=== PATIENT | male | born 1965 | race Caucasian/White ===

== ENCOUNTER 2022-06-09 05:15 | Observation (INO) ==
--- NOTE | 2022-04-17 09:33 | PAT Medication Instructions ---
Medication Instructions Date of Service April 17, 2022 Home Medications amlodipine 5 mg tablet 5 mg PO QAM bupropion HCl 150 mg 24 hr tablet, extended release 150 mg PO QAM citalopram 20 mg tablet 20 mg PO QAM lisinopril 20 mg-hydrochlorothiazide 12.5 mg tablet 1 tab PO QAM multivitamin 1 tab PO QAM DO NOT take the morning of surgery lisinopril 20 mg-hydrochlorothiazide 12.5 mg tablet 1 tab PO QAM multivitamin 1 tab PO QAM Take morning of surgery With a small sip of water, OTHERWISE NOTHING TO EAT OR DRINK AFTER MIDNIGHT: amlodipine 5 mg tablet 5 mg PO QAM bupropion HCl 150 mg 24 hr tablet, extended release 150 mg PO QAM citalopram 20 mg tablet 20 mg PO QAM Other Notes If you have any questions please call us at [phone] or [phone] or [phone] or [phone]
--- NOTE | 2022-04-21 09:49 | Anesthesiology Consultation ---
Date of Service April 21, 2022 Assessment & Plan (1) Encounter for pre-operative examination: - COVID screening: Per assessment on 04/21/2022: Travel screen negative, no known COVID-19 positive contacts or current COVID-19 related symptoms in past 2 weeks. Surgeon arranging preop COVID testing, scheduled 05/14/2022. Awaiting results. Chart Review Chart Review: Acceptable Risk for Surgery and Patient seen in Pre Admission Testing Teaching & Discussion Pre-Anesthesia Teaching/Discussion Notes: Instructed NPO after midnight before surgery, except medications with 15 cc of water. Medication instructions provided according to the PAT guidelines. History Surgery Operation Date: 05/18/22 07:15 Proposed Procedures p Left Total Knee Arthroplasty - Elver Orourke MD Height/Weight Height: 5 ft 9 in Weight: 122.8 kg Allergies Allergy/AdvReac Type Severity Reaction Status Date / Time iodine Allergy Unknown N/V, Verified 04/16/22 14:46 SWELLING shellfish derived Allergy Unknown N/V Verified 04/16/22 14:46 SWELLING Medications Home Medications Medication Instructions Recorded Confirmed Last Taken amlodipine 5 mg tablet 5 mg PO QAM 10/14/20 04/16/22 Unknown bupropion HCl 150 mg 24 hr tablet, 150 mg PO QAM 10/14/20 04/16/22 Unknown extended release citalopram 20 mg tablet 20 mg PO QAM 10/14/20 04/16/22 Unknown lisinopril 20 1 tab PO QAM 10/14/20 04/16/22 Unknown mg-hydrochlorothiazide 12.5 mg tablet multivitamin 1 tab PO QAM 10/14/20 04/16/22 Unknown Past Medical History Medical History (Updated 04/21/22 @ 10:09 by Malaika Mazariegos PA-C) Anxiety Back pain Depression Esophageal reflux intermittent, stable per pt History of COVID-05 September 2021 -- treated with the antibody treatment--full recovery Hypertension controlled, stable per pt Psoriasis Patient denies h/o stroke, seizures, heart attack, heart failure, DM, blood clots or blood transfusions. Exercise / Class Metabolic Activity II 4-5 Yardwork/Stairs/Walk up hill (denies CP or SOB with 1 FOS) Past Family History Family History Mother Diabetes Other No family history of adverse response to anesthesia Past Surgical History Surgical History (Updated 04/21/22 @ 09:45 by Malaika Mazariegos PA-C) Biceps tendon rupture right with repair History of colonoscopy History of deviated nasal septum with repair History of esophagogastroduodenoscopy (EGD) History of tooth extraction Hx of elbow surgery right S/P left knee arthroscopy 10/24/20: LMA#5. Past Anesthesia History No Hx of Anesthesia Complications and No Family Hx of Anesthesia Complications History of PONV No Hx of PONV and No Hx of Motion Sickness Social History Smoking Status: Former smoker Do You Dip or Chew Tobacco: No Smoking End Date: 2009 Hx Alcohol Use: Yes alcohol intake frequency: holidays/special occasions only Hx Substance Use: No substance use type: does not use Review of Systems Snoring, denies witnessed apneas. Patient denies chest pain, shortness of breath, dyspnea on exertion, fever, chills, cough, wheezing, or palpitations. Physical Exam Vital Signs Vitals BP 125/82 P 82 TEMP 98.4 SP02 97% on RA RESP 17 Physical Short, thick neck Full cervical extension range of motion without pain TMD 3 finger breadths Mallampati Score 3 Dentition: intact, several missing teeth; denies chipped or loose teeth, caps/crowns, implants or bridges Lungs: normal respiratory effort. Clear throughout to auscultation, no adventitious breath sounds Cardiac: regular rate and rhythm, no murmurs noted Carotid arteries: negative bruit bilat Lab Results Anesthesia Preop Results Results Anesthesia Widget: WBC 6.53 K/uL (4.8-10.8) 04/21/22 Hgb 15.6 g/dL (14.0-18.0) 04/21/22 Hct 44.7 % (42-52) 04/21/22 Plt 223 K/uL (130-400) 04/21/22 Na 138 mmol/L (136-145) 04/21/22 K 3.7 mmol/L (3.5-5.1) 04/21/22 Cl 105 mmol/L (98-107) 04/21/22 CO2 24 mmol/L (21-32) 04/21/22 BUN 16 mg/dl (6-23) 04/21/22 Creat 1.06 mg/dl (0.6-1.4) 04/21/22 Glucose Level 116 mg/dl (70-99(Fasting)) H 04/21/22 PT 10.9 Seconds (9.0-12.0) 04/21/22 PTT 28.0 Seconds (21.0-31.0) 04/21/22 INR 1.0 (0.9-1.1) 04/21/22 Blood Type A Positive 04/21/22 Antibody Screen NEGATIVE 04/21/22 Testing Electrocardiogram Date: 04/21/22 NSR, rate 80 bpm Possible left atrial enlargement Chest X-Ray Date: 04/21/22 Cardiomediastinal and hilar silhouettes are within normal limits. There is no pneumothorax, pleural effusion, airspace consolidation or overt pulmonary edema. Bones of the chest appear grossly intact. Mild degeneration of the shoulders. IMPRESSION: No acute process.
--- NOTE | 2022-05-15 13:00 | Communication Note ---
Pt initially scheduled for left TKA on 05/18/22 Preop Covid testing 05/14/22= positive Pt rescheduled to 06/09/22 (will not need additional preop Covid testing or additional Covid contact precautions as he will be 26 days from Covid positive test ) Pt called into surgeon's office on 05/15/22, stating he is asymptomatic and had negative home Covid test today and wants re-tested. Did discuss with Infection Control- pt can have repeat NAAT tests ([place] ID Now, Cepheid or [place]) 24 hours after [place] positive test and if he has two consecutive negative tests 24 hours apart- and remains asymptomatic- he can be rescheduled sooner than 11 days. This was communicated to surgeon's office. Due to scheduling issues- pt currently scheduled for 06/09/22.
[~2022-06-09 05:15] MED LIST: ACETAMINOPHEN 500 MG TAB PO SCH; FAMOTIDINE 20 MG TAB PO SCH; GABAPENTIN 900 MG DOSE PO SCH; LR 500ML BOLUS, THEN 15ML/HR IV SCH; LR 60ML/HR IV SCH; METOCLOPRAMIDE HCL 10 MG TABLET PO SCH; ROPIVACAINE 0.5% HCL/PF 150 MG, BUPIVACAINE 0.75% MPF 20 ML, EPINEPHrine 0.15 MG, Ketor... INFIL SCH; TRANEXAMIC ACID 1,000 MG **IV Intra-op IV SCH; TRANEXAMIC ACID 1,000 MG **IV Pre-op IV SCH; cloNIDine HCL 0.1 MG/24 HR TRANSDERM SYS TD SCH; dexAMETHasone 4 MG TAB PO SCH; oxyCODONE HCL 10 MG TABCR (OxyCONTIN) PO SCH; traMADol HCL 50 MG TABLET PO SCH
[2022-06-09] MEDS ORDERED: LR 500ML BOLUS, THEN 15ML/HR IV SCH (06:00)
[2022-06-09] MEDS ORDERED: ROPIVACAINE 0.5% HCL/PF 150 MG, BUPIVACAINE 0.75% MPF 20 ML, EPINEPHrine 0.15 MG, Ketor... INFIL SCH (06:00)
[2022-06-09] MEDS ORDERED: ACETAMINOPHEN 500 MG TAB PO SCH (06:00)
[2022-06-09] MEDS ORDERED: cloNIDine HCL 0.1 MG/24 HR TRANSDERM SYS TD SCH (06:00)
[2022-06-09] MEDS ORDERED: FAMOTIDINE 20 MG TAB PO SCH (06:00)
[2022-06-09] MEDS ORDERED: GABAPENTIN 900 MG DOSE PO SCH (06:00)
[2022-06-09] MEDS ORDERED: traMADol HCL 50 MG TABLET PO SCH (06:00)
[2022-06-09] MEDS ORDERED: oxyCODONE HCL 10 MG TABCR (OxyCONTIN) PO SCH (06:00)
[2022-06-09] MEDS ORDERED: TRANEXAMIC ACID 1,000 MG **IV Intra-op IV SCH (06:00)
[2022-06-09] MEDS ORDERED: METOCLOPRAMIDE HCL 10 MG TABLET PO SCH (06:00)
[2022-06-09] MEDS ORDERED: dexAMETHasone 4 MG TAB PO SCH (06:00)
[2022-06-09] MEDS ORDERED: TRANEXAMIC ACID 1,000 MG **IV Pre-op IV SCH (06:00)
[2022-06-09] MEDS ORDERED: LR 60ML/HR IV SCH (06:00)
[2022-06-09] MEDS ORDERED: LIDOCAINE 2% MPF LOCAL 5 ML VIAL INFIL ONE (06:30)
[2022-06-09] MEDS ORDERED: ONDANSETRON INJ 2 MG/ML 2 ML VIAL ONE (06:30)
[2022-06-09] MEDS ORDERED: fentaNYL citrate 100 MCG/2 ML VIAL ONE ×2 (06:30→09:03)
[2022-06-09] MEDS ORDERED: PROPOFOL IV EMULSION 10 MG/ML 20 ML VIAL IV ONE ×3 (06:30→08:14)
[2022-06-09] MEDS ORDERED: MIDAZOLAM HCL 1 MG/ML 2ML VIAL ONE ×2 (06:30→08:28)
[2022-06-09] MEDS ORDERED: MEPIVACAINE HCL 1.5% 30 ML VIAL ONE (06:33)
[2022-06-09] MEDS ORDERED: EPINEPHrine INJ 1 MG/ML AMP ONE (06:33)
[2022-06-09] MEDS ORDERED: ROPIVACAINE 0.5% 5 MG/ML 30 ML VIAL ONE (06:33)
[2022-06-09] MEDS ORDERED: VANCOMYCIN HCL 1000MG/20ML VIAL ONE (06:34)
[2022-06-09] MEDS ORDERED: ORTHO JOINT ANESTHETIC ONE (06:34)
--- NOTE | 2022-06-09 06:41 | History & Physical Bridge Note ---
Date of Service June 09, 2022 History & Physical Bridge Note I have examined the patient, reviewed the History & Physical and in the interval since the performance of the History & Physical I have noted the following changes of clinical significance: no changes noted
[2022-06-09] MEDS ORDERED: LABETALOL HCL IV 5 MG/ML 20ML IV ONE ×4 (08:26→09:21)
[2022-06-09] MEDS ORDERED: KETAMINE 50 MG/5 ML SYRINGE ONE (08:29)
[2022-06-09] MEDS ORDERED: PROMETHAZINE HCL 12.5 MG in SODIUM CHLORIDE 0.9% 50 ML IV PRN (08:37)
[2022-06-09] MEDS ORDERED: NALOXONE HCL 0.4 MG/1 ML VIAL/CARP IV PRN ×2 (08:37→16:07)
[2022-06-09] MEDS ORDERED: FLUMAZENIL 0.1 MG/1 ML 10 ML VIAL IV PRN (08:37)
[2022-06-09] MEDS ORDERED: ePHEDrine sulfate 50 MG/ML AMP IV PRN (08:37)
[2022-06-09] MEDS ORDERED: ATROPINE SULFATE 0.1 MG/ML 10ML SYR IV PRN (08:37)
[2022-06-09] MEDS ORDERED: ONDANSETRON INJ 2 MG/ML 2 ML VIAL IV PRN ×2 (08:37→16:07)
--- NOTE | 2022-06-09 10:21 | Operative Report ---
Post Operative Report Pre & Post Diagnosis Operation Date: 06/09/22 07:00 Pre-Op Diagnosis: Left Knee Osteoarthritis Post-Op Diagnosis: Left Knee Osteoarthritis I identified the patient and participated in the time-out.: Yes Procedure Preop diagnosis is left knee osteoarthritis postop diagnosis same. Operation Date: 06/09/22 07:00 Actual Procedures p Left Total Knee Arthroplasty(Left) - Elver Orourke MD Surgeon Elver Orourke MD White [employer] Filterer Ирина Mayer no resident or fellow available Estimated Blood Loss 10 Findings Consistent with Post-Op Diagnosis Specimens Resected bone and soft tissue Anesthesia Type General Regional Complications none Disposition Accompanied Patient To Recovery: No Disposition: Recovery Room Indications rFank is 57 and has significant left knee pain and osteoarthritis. He has undergone extensive conservative management which has not relieved his pain. He has elected to proceed with a knee replacement. Description of Procedure Informed consent obtained. Patient identified. He identified the operative site as the left knee. I marked with my initials. Preoperative surgical timeout was performed. A prep dose of IV antibiotics was given. He was taken to the operating room positioned supine on the operating room table. A bump was placed under the left hip and left calf. A tourniquet was applied to the left thigh. The leg was prescribed prepped and draped in usual sterile fashion. DVT prophylaxis intraoperatively with foot pumps and postoperatively with early mobility and Lovenox. The exam under anesthesia revealed trace varus alignment range of motion of 0 to about 115 to 120 degrees there was no laxity. Positive moderate effusion. Limb exsanguinated with the Esmarch. Tourniquet inflated 275 mmHg. Midline longitudinal incision was made followed by medial parapatellar arthrotomy. Soft tissue on the anterior aspect the distal femur was resected along with the retropatellar fat pad the synovial reflection in the lateral gutter was released. An extensile medial release was performed and the small remnant of the medial meniscus was excised. There were a large osteophytes noted on the medial tibia which were debrided. Osteophytes elsewhere were also debrided. There were grade 4 changes over the entire weightbearing area of the femoral condyle and grade 4 blade changer an area 1-1/2 to centimeters in diameter medial tibia with surrounding areas of grade 3. The cruciate ligaments were intact and resected. The lateral meniscus was intact and resected. I was hoping to preserve the patella however there was extensive softness fissuring and flaps of the patella along with to osteophytes 1 of which was substantially large. This was resected. The tibia was subluxated and a pilot captain hole was drilled into the proximal tibia. The intramedullary alignment jovani was then utilized to line up the tibial cutting block. A 0 degree block. This was set to cut 10 off the high side galina esponding to about 4 off the medial side. The extra medullary alignment jovani was utilized to confirm slope and alignment which was appropriate with a little valgus twist of the block and an extra pin. This cut was made and sized to a 3 or 4. A pilot captain hole was drilled into the distal femur followed by the insertion of a distal femoral cutting block set to 5 degrees left knee valgus 12 mm thick. T his cut was then made and the extension gap was okay in the front but tight posteriorly. I went ahead and did some additional releasing but it remained the same. I then went ahead and took the 3 degrees posterior slope cutting block and applied that to the tibia and recut the tibia with some slope and this nicely corrected the tightness in the back the knee and the tendon block fit symmetrically. The knee was neutrally aligned and fully extended. I then took the femoral sizer and applied it. It was never a 4. It was just above the 3. I set the guide at 3 and drilled the appropriate pins which matched the epicondylar axis. The size 3 anterior down cutting block was applied and those cuts were made protecting the collateral ligaments. Osteophytes under the collateral ligaments were removed. The box cutting guide was applied and lateralized and that cut was made. Osteophytes in the back the knee were resected. The flexion gap was a symmetric 10. The tibia was prepared with the keel and punch. Trialing was performed. The knee had full extension flexion to about 120 and it had trace MCL and LCL laxity in mid position otherwise it was symmetrically tight. Attention was turned to the patella which measured only 21 mm in thickness. I went ahead and selected a 38 mm 3 peg patella. This required resection of 9 mm. I set the guide to preserve 14 mm of bone. After the cut was made the residual patellar thickness was 13. The paddle was aligned and the lug holes were drilled and patellar tracking was fine with no hands technique. The trial components were removed. Ortho joint mix injected in the back the knee. There was eburnation of the lateral patella which was drilled with a pin. Bony surfaces were meticulously irrigated and dried. 2 bags of Simplex P anurag ent were mixed and then while in a doughy state smears were placed on the back of the condyles and the components were cemented in place. Femur tibia patella. The knee was held in full extension with a trial spacer until the cement had hardened. Tourniquet was then let down after 100 110 minutes of inflation. Meticulous hemostasis with minimal bleeding. Soft tissues were kept moist throughout the surgical procedure. Irrigation was reperformed. Trialing with a 10 revealed the after mentioned laxity profile and the final 10 mm thick polyethylene insert was applied. There was no bleeding in the back the knee and we did check for cement and removed as encountered. Irrigation was performed and the remainder the Ortho joint mix was injected into the knee while the cement was hardening. The extensor mechanism was closed with interrupted #2 FiberWire above the equator the patella and running and interrupted #1 Vicryl below. The skin was closed in layers with 0 and 2-0 Vicryl and mike. The leg was cleaned with wet and dry sponges and a bulky soft sterile dressing was applied Xeroform 4 x 4's ABD soft wrap and a full-length Corey with a knee immobilizer. Patient was awakened from anesthesia without difficulty and taken to the recovery room in stable condition. There were no complications. The resected bone and soft tissue were sent for specimen. The bone appeared normal. Counts were correct. Blood loss 10 cc. At the conclusion of the operation spoke patient's informed of my findings postop instructions were given. Due to bed availability and with the patient's consent he was enrolled in the outpatient joint program if he meets postoperative criteria. Lovenox will be started 12 hours postop. [place] assisted flexion with the extensor mechanism closed was 115 to 120 degrees. The composite patellar thickness after reconstruction was 22-1/2 mm. Components inserted with a J[employer]J PFC Sigma rotating platform knee. Posterior stabilized size 3 left femur and a 4 RP tray with a 38 3 peg oval dome patella and a size 3 x 10 mm thick rotating platform PS insert I attest to the content of the Intraoperative Record and any orders documented therein. Any exceptions are noted below.
--- NOTE | 2022-06-09 10:25 | Operative Report ---
Post Operative Report Pre & Post Diagnosis Operation Date: 06/09/22 07:00 Pre-Op Diagnosis: Left Knee Osteoarthritis Post-Op Diagnosis: Left Knee Osteoarthritis I identified the patient and participated in the time-out.: Yes Procedure Operation Date: 06/09/22 07:00 Actual Procedures p Left Total Knee Arthroplasty(Left) - Elver Orourke MD Surgeon Elver Orourke M.D. Automobile Racer Ирина Mayer PA-C Estimated Blood Loss 10 Findings Consistent with Post-Op Diagnosis Specimens bone and soft tissue Anesthesia Type General Regional Description of Procedure Patient was taken to the operating room, placed under IV sedation with peripheral nerve block, during the middle of the case he was then placed under general anesthesia. He was given 3 gm IV Ancef for surgical prophylaxis. Time out performed, prepped and draped in routine sterile fashion. I was present during the entire procedure, please see Dr. Orourke's operative report for further details. Patient was awakened and taken to recovery room in stable condition. I attest to the content of the Intraoperative Record and any orders documented therein. Any exceptions are noted below.
[2022-06-09] MEDS ORDERED: oxyCODONE/ACETAMINOPHEN 5mg/325mg TAB PO PRN (10:29)
[2022-06-09] MEDS: fentaNYL citrate 100 MCG/2 ML VIAL IV PRN ×4 (10:30→10:45)
[2022-06-09] MEDS: HYDROmorphone INJ 1 MG/ML SYRINGE IV PRN ×8 (10:52→12:23)
--- NOTE | 2022-06-09 10:56 | XRay Report ---
LEFT KNEE 2 VIEWS History: Left total knee arthroplasty. Degenerative arthritis. Postop. FINDINGS: The patient is status post a left total knee arthroplasty. The hardware is intact. No fract ure or dislocation. Skin mike are in place. IMPRESSION: Left total knee arthroplasty. No evidence for hardware complication. ACT 112: Negative or not required by law. Electronically signed by: Roverto Dominguez M.D. 06/09/2022 10:54 AM
--- NOTE | 2022-06-09 12:07 | Anesthesiology Progress Note ---
Date of Service June 09, 2022 Anesthesia Post Procedure Vital Signs Vital Signs: Temp Pulse Resp BP Pulse Ox O2 Del Method O2 Flow Rate 06/09/22 12:05 82 18 132/88 96 Nasal Cannula 2 06/09/22 11:55 78 18 141/97 H 95 Nasal Cannula 2 06/09/22 11:45 77 18 112/73 95 Nasal Cannula 2 06/09/22 11:35 77 18 115/83 95 Nasal Cannula 2 06/09/22 11:25 36.5 C 78 16 106/66 97 Nasal Cannula 2 06/09/22 11:15 36.5 C 85 16 101/67 95 Nasal Cannula 2 06/09/22 11:05 82 16 106/70 95 Nasal Cannula 4 06/09/22 10:55 85 16 126/81 95 Nasal Cannula 4 06/09/22 10:45 84 16 131/81 96 Nasal Cannula 4 06/09/22 10:35 82 18 129/97 96 Nasal Cannula 4 06/09/22 10:26 36.5 C 84 18 115/87 96 Oxymask 5 06/09/22 06:05 36.7 C 79 20 146/87 H 94 Room Air Transfer of Care Handoff Completed per policy Notes Mental Status: alert / awake / arousable Patient Amnestic to Procedure: Yes Nausea / Vomiting: adequately controlled Pain: adequately controlled Airway Patency, RR, SpO2: stable & adequate BP & HR: stable & adequate Hydration State: stable & adequate Anesthetic Complications: no major complications apparent
[2022-06-09] MEDS ORDERED: bisacodyL 10 MG SUPP PR PRN (16:07)
[2022-06-09] MEDS ORDERED: HYDROmorphone INJ 0.5 MG/0.5 ML SYR IV PRN ×2 (16:07→17:23)
[2022-06-09] MEDS ORDERED: TAMSULOSIN HCL 0.4 MG CAP PO PRN (16:07)
[2022-06-09] MEDS ORDERED: diphenhydrAMINE 50 MG/ML VIAL IV PRN (16:07)
[2022-06-09] MEDS ORDERED: MAGNESIUM HYDROXIDE SUSP 30 ML UDC PO PRN (16:07)
[2022-06-09] MEDS ORDERED: traMADol HCL 50 MG TABLET PO PRN (16:07)
[2022-06-09] MEDS ORDERED: HYDROmorphone INJ 1 MG/ML SYRINGE IV PRN ×2 (16:07→17:23)
[2022-06-09] MEDS: CHECK CLONIDINE PATCH PLACEMENT SCH ×10 (16:32→23:33)
[2022-06-09] MEDS: ACETAMINOPHEN 500 MG TAB PO SCH ×2 (16:43→22:06)
[2022-06-09] MEDS: SODIUM CHLORIDE 0.9% 1000ML 1,000 ML IV SCH (16:49)
[2022-06-09] MEDS: KETOROLAC 30 MG/ML VIAL IV SCH ×2 (17:39→22:06)
[2022-06-09] MEDS: ceFAZolin 2000MG 2,000 MG/15 ML SYR IV SCH ×2 (17:39→23:33)
[2022-06-09] MEDS: oxyCODONE HCL IR 5 MG TAB (IMMEDIATE RELEASE) PO PRN (19:58)
[2022-06-09] MEDS: SENNA 8.6 MG TAB PO SCH (20:48)
[2022-06-09] MEDS: DOCUSATE SODIUM 100 MG CAP PO SCH (20:48)
[2022-06-09] MEDS: ENOXAPARIN INJ 30 MG/0.3 ML SYR SQ SCH (22:06)
[2022-06-10] MEDS: oxyCODONE HCL IR 5 MG TAB (IMMEDIATE RELEASE) PO PRN ×6 (00:02→23:14)
[2022-06-10] MEDS: SODIUM CHLORIDE 0.9% 1000ML 1,000 ML IV SCH (02:09)
[2022-06-10] MEDS: KETOROLAC 30 MG/ML VIAL IV SCH ×2 (04:17→10:41)
[2022-06-10] MEDS: ACETAMINOPHEN 500 MG TAB PO SCH ×3 (05:20→21:31)
[2022-06-10 06:52] LABS: Hematocrit (blood only) 34.8 % (40.1-51.0); Hemoglobin 11.8 g/dl (14.0-18.0); Mean Corpuscular Hgb Conc 33.9 g/dL (32.0-36.0); Mean Corpuscular Volume 94.3 fL (80.0-100.0); Mean Platelet Volume 9.5 fL (9.4-12.4); Platelet Count 190 K/uL (130-400); RDW Coefficient of Variation 12.2 % (11.5-14.5); RDW Standard Deviation 42.4 fL (36.4-46.3); Red Blood Count 3.69 M/uL (4.63-6.08); White Blood Count 13.22 K/ul (4.8-10.8)
[2022-06-10 07:24] LABS: BUN Creatinine Ratio 13.3 (10-20); Calcium 8.4 mg/dl (8.5-10.1); Creatinine Clr Calc Pharmacy 95.7 ml/min; Est GFR (African American) 84.3 ml/min; Est GFR (Non-African American) 72.8 ml/min
[2022-06-10] MEDS ORDERED: dexAMETHasone 4 MG TAB PO SCH (08:00)
[2022-06-10] MEDS: amLODIPine BESYLATE 5 MG TAB PO SCH (08:03)
[2022-06-10] MEDS: DOCUSATE SODIUM 100 MG CAP PO SCH ×2 (08:03→20:20)
[2022-06-10] MEDS: LISINOPRIL/HCTZ 20/12.5MG 1 TAB TAB PO SCH (08:03)
[2022-06-10] MEDS: CITALOPRAM 20 MG TAB PO SCH (08:03)
[2022-06-10] MEDS: buPROPion XL 150 MG TABCR PO SCH (08:03)
[2022-06-10] MEDS: MULTIVITAMIN TAB PO SCH (08:03)
[2022-06-10] MEDS: CHECK CLONIDINE PATCH PLACEMENT SCH ×6 (08:04→17:39)
[2022-06-10] MEDS ORDERED: NON-FORMULARY MEDICATION (Multivitamin Tablet) PO SCH (09:00)
[2022-06-10] MEDS: ENOXAPARIN INJ 30 MG/0.3 ML SYR SQ SCH ×2 (09:39→21:30)
--- NOTE | 2022-06-10 10:52 | Orthopedic Progress Note ---
Date of Service June 10, 2022 Assessment & Plan (1) Status post total left knee replacement: Plan: POD 1 PT/OT today OOB weight bear as tolerated LLE with assistance of a knee immobilizer and walker. Regular diet as ordered Pain medication as prescribed. Ice and elevation to left knee/left leg as needed for pain/swelling. Case management for disposition. Lovenox and AV impulse boots, TEDs for DVT prophylaxis. Plans for discharge to home with home health. Will reassess this afternoon to see how he did in PT and if pain controlled enough for discharge. Patient understands and agrees with the plan. HH arranged preoperatively. Dr. Orourke present for today's visit. Admission and Anticipated Discharge Date Admission Date: June 09, 2022 Subjective Patient having pain this morning, controlled/tolerable with Oxycodone. States that the Tramadol alone was not enough. Denies numbness or tingling in left leg, denies chest pain or shortness of breath. Has been out of bed last evening and this morning with OT. Awaiting PT today. Physical Exam Musculoskeletal: Left knee dressings clean, dry and intact. Full ankle ROM and strength. Mild distal edema, sensation normal to sensation, no calf tenderness, calf is supple. Tolerated gentle ROM of left knee and left hip. Results & Data ([facility]) Vital Signs (Past 12 Hours) Vital Signs Temp Pulse Resp BP Pulse Ox O2 Del Method 06/10/22 07:20 36.6 C 76 17 142/69 H 99 Room Air 06/10/22 02:57 36.5 C 84 16 141/76 H 95 Room Air 06/09/22 23:15 36.8 C 89 18 108/64 95 Room Air Laboratory Results 06/10/22 06/10/22 Range/Units 06:02 06:02 WBC 13.22 H (4.8-10.8) K/ul RBC 3.69 L (4.63-6.08) M/uL Hgb 11.8 L (14.0-18.0) g/dl Hct 34.8 L (40.1-51.0) % MCV 94.3 (80.0-100.0) fL MCH 32.0 (25.0-34.0) pg MCHC 33.9 (32.0-36.0) g/dL RDW Std Deviation 42.4 (36.4-46.3) fL RDW Coeff of Michelle 12.2 (11.5-14.5) % Plt Count 190 (130-400) K/uL MPV 9.5 (9.4-12.4) fL Sodium 135 L (136-145) mmol/L Potassium 4.0 (3.5-5.1) mmol/L Chloride 104 (98-107) mmol/L Carbon Dioxide 25 (21-32) mmol/L Anion Gap 6 (3-11) BUN 15 (6-23) mg/dl Creatinine 1.13 (0.6-1.4) mg/dl Est Cr Clr Drug Dosing 95.7 ml/min Est GFR ( Amer) 84.3 ml/min Est GFR (Non-Af Amer) 72.8 ml/min BUN/Creatinine Ratio 13.3 (10-20) Glucose 124 H (70-99(Fasting)) mg/dl Calcium 8.4 L (8.5-10.1) mg/dl
[2022-06-10] MEDS: SENNA 8.6 MG TAB PO SCH (20:21)
[2022-06-11] MEDS: oxyCODONE HCL IR 5 MG TAB (IMMEDIATE RELEASE) PO PRN ×4 (03:26→15:20)
[2022-06-11] MEDS: ACETAMINOPHEN 500 MG TAB PO SCH ×2 (06:07→15:22)
[2022-06-11 07:27] VITALS: BP 141/94; PULSE 75; TEMP 97.7; O2SAT 98
[2022-06-11] MEDS: LISINOPRIL/HCTZ 20/12.5MG 1 TAB TAB PO SCH (08:46)
[2022-06-11] MEDS: amLODIPine BESYLATE 5 MG TAB PO SCH (08:46)
[2022-06-11] MEDS: CITALOPRAM 20 MG TAB PO SCH (08:46)
[2022-06-11] MEDS: DOCUSATE SODIUM 100 MG CAP PO SCH (08:46)
[2022-06-11] MEDS: buPROPion XL 150 MG TABCR PO SCH (08:46)
[2022-06-11] MEDS: MULTIVITAMIN TAB PO SCH (08:46)
--- NOTE | 2022-06-11 09:24 | Orthopedic Progress Note ---
Date of Service June 11, 2022 Assessment & Plan (1) Status post total left knee replacement: Plan: Patient was educated regarding today's findings. He feels ready for discharge to home. Patient will have his dressing change later today. I will speak with Dr. Orourke regarding his possible discharge today. Patient's postoperative prescriptions have already been sent to his pharmacy. Admission and Anticipated Discharge Date Admission Date: June 09, 2022 Subjective Patient is seen in his room this morning. States he did well overnight. Denies any chest pain, shortness of breath, nausea, or vomiting. He does have left- sided thigh pain that he believes is from the tourniquet. He states that hurts more than his knee. No numbness or tingling. He has been out of bed and has ambulated to the bathroom. He feels much better today and thinks he is ready for discharge. Review of Systems Review of Systems: Unchanged from yesterday. Physical Exam Physical Exam: General: Well-developed, well-nourished, middle-aged male, in no acute distress. Sitting in bed. Conversive. Coherent. Skin: Warm dry with good turgor. No rashes. He has some ecchymosis on his thigh. Postsurgical dressings are in place. There is no strikethrough. Musculoskeletal: Patient has intact motor function of his left leg. He is able to flex his knee to around 35 degrees. He has full extension. Intact motor function of the ankle. He is able to set his quad and perform a straight leg raise with some minor assistance. Neurologic: Gross sensation is intact across the left leg by soft touch. Results & Data ([facility]) Vital Signs (Past 12 Hours) Vital Signs Temp Pulse Resp BP Pulse Ox O2 Del Method 06/11/22 07:57 36.5 C 75 16 141/94 H 98 06/11/22 07:23 36.5 C 75 16 141/94 H 98 06/10/22 22:14 36.6 C 100 H 18 134/77 97 Room Air
--- NOTE | 2022-06-11 11:03 | Discharge Summary ---
Date of Service June 11, 2022 Discharge Data Procedures Performed Operation Date: 06/09/22 07:00 Actual Procedures p Left Total Knee Arthroplasty(Left) - Elver Orourke MD Hospital Course (1) Status post total left knee replacement: Patient was admitted to [facility] for observation after undergoing an elective left total knee arthroplasty on June 09, [address] Orourke. His surgery was performed with IV sedation and spinal anesthetic with peripheral nerve block, he was then given general anesthesia due to some desaturation during the case. He also then had prolonged elevated CO2 levels after extubation. He was initially planning on being an outpatient total joint but then was admitted postoperatively for monitoring of his saturation of oxygen levels. He was given 3 g of IV Ancef for surgical prophylaxis preoperatively and this was continued for 24 hours after surgery. In the PACU he had postoperative x-rays of his left knee which showed a stable prosthesis of his left knee. He was allowed out of bed, weight-bear as tolerated left lower extremity with the assistance of a walker and knee immobilizer when out of bed. He was given oxycodone, tramadol, Tylenol, Toradol, IV Dilaudid as needed for pain medication. He was given a bowel regimen during his inpatient stay as well. He was given Flomax as needed for urinary retention. He was placed on oxygen and continuous pulse ox for the first 24 hours. His home medications were continued. He was placed on Lovenox 30 mg p.o. twice daily which started the day after his surgery for DVT prophylaxis. He was also given BRANDON stockings and AV impulse boots during his inpatient stay. His vital signs were stable during his inpatient stay. Postoperative laboratory work revealed some mild blood loss anemia but stable. No transfusions were necessary during his inpatient stay. He was given a regular diet which he tolerated well during his inpatient stay. He did have a lot of postoperative pain which was managed mildly with oral pain medication. He was kept for 2 postoperative days for pain control. He was seen and evaluated by physical therapy and Occupational Therapy daily and did well out of bed. He was deemed safe for discharge to his home. On postoperative day 2 his dressings were changed. The incision was clean, dry and intact. New dressings were applied. Case management was involved for discharge needs. He did have home health arranged preoperatively and this was confirmed during his hospital stay. He was deemed safe for discharge to his home on June 11, 2022. He was discharged to his home in stable condition with his . Home health arrangements were made prior to leaving. He did have a walker for use at home. Discharge instructions were reviewed and as below. Pain medication was also sent to his pharmacy. His Lovenox was sent to his pharmacy upon discharge as well.
[2022-06-11] MEDS: ENOXAPARIN INJ 30 MG/0.3 ML SYR SQ SCH (11:27)
== END 2022-06-11 16:19 | disposition home health service (06) ==
LOC: ASU 05:15 → PACUINP 05:15 → 3E 15:55
DX: Z87.891 Personal history of nicotine dependence; Z79.899 Other long term (current) drug therapy; E66.01 Morbid (severe) obesity due to excess calories; M17.12 Unilateral primary osteoarthritis, left knee; Z68.41 Body mass index [BMI] 40.0-44.9, adult; Z91.013 Allergy to seafood

== ENCOUNTER 2022-06-25 03:44 | Inpatient (IN) ==
[2022-06-25] MEDS ORDERED: CEFEPIME 2,000 MG/20 ML VIAL IV STA (04:04)
[2022-06-25] MEDS ORDERED: PIPERACILLIN/TAZOBACTAM 4.5 GM in DEXTROSE 5% 100 ML IV SCH ×2 (04:15→11:00)
[2022-06-25 04:36] LABS: Basophils # (auto) 0.08 K/uL (0-0.2); Basophils % (auto) 0.6 %; Eosinophils # (auto) 0.24 K/uL (0-0.50); Eosinophils % (auto) 1.7 %; Hematocrit (blood only) 37.6 % (40.1-51.0); Hemoglobin 12.6 g/dl (14.0-18.0); Immature Granulocytes % (auto) 0.7 %; Lymphocytes # (auto) 1.71 K/uL (1.2-3.4); Mean Corpuscular Hemoglobin 31.5 pg (25.0-34.0); Mean Corpuscular Hgb Conc 33.5 g/dL (32.0-36.0); Mean Platelet Volume 8.5 fL (9.4-12.4); Monocytes # (auto) 1.23 K/uL (0.24-0.82); Monocytes % (auto) 8.6 %; Neutrophils # (auto) 10.93 K/uL (1.4-6.5); Neutrophils % (auto) 76.4 %; Platelet Count 299 K/uL (130-400); RDW Coefficient of Variation 12.8 % (11.5-14.5); RDW Standard Deviation 43.8 fL (36.4-46.3); White Blood Count 14.29 K/ul (4.8-10.8)
[2022-06-25] MEDS ORDERED: PIPERACILLIN/TAZOBACTAM 4.5 GM/120 ML BAG IV STA (04:59)
[2022-06-25 05:05] LABS: Partial Thromboplastin Time 28.8 Seconds (21.0-31.0); Prothrombin Time 10.8 Seconds (9.0-12.0)
[2022-06-25] MEDS ORDERED: ONDANSETRON INJ 2 MG/ML 2 ML VIAL IV STA (05:05)
[2022-06-25] MEDS ORDERED: SODIUM CHLORIDE 0.9% 1000ML 2,000 ML IV ONE (05:05)
[2022-06-25] MEDS ORDERED: MoRPHine SULFATE 10 MG/ML CARP/VIAL IV STA (05:05)
[2022-06-25] MEDS ORDERED: ACETAMINOPHEN 1,000 MG/100 ML VIAL IV STA (05:05)
[2022-06-25 05:10] LABS: Albumin Globulin Ratio 1.3 (0.9-2); Albumin Level 3.8 gm/dl (3.4-5.0); BUN Creatinine Ratio 11.4 (10-20); Bilirubin,Total 0.5 mg/dl (0.2-1.0); Calcium 8.9 mg/dl (8.5-10.1); Creatinine Clr Calc Pharmacy 93.5 ml/min; Est GFR (African American) 83.4 ml/min; Magnesium 1.8 mg/dl (1.7-2.4); Potassium 3.9 mmol/L (3.5-5.1); Total Protein 6.8 gm/dl (6.0-8.3)
[2022-06-25 06:53] LABS: Appearance Urine Clear (Clear); Bilirubin Urine Negative (Negative); Blood Urine Negative (Negative); Color Urine Yellow; Glucose Urine UA Negative (Negative); Ketones Urine Negative (Negative); Leukocyte Esterase Urine Negative (Negative); Nitrite Urine Negative (Negative); Protein Urine Negative (Negative); Specific Gravity Urine 1.012 (1.000-1.030); Urobilinogen Urine Negative (Negative); pH Urine 7.5 (4.5-7.5)
--- NOTE | 2022-06-25 07:05 | Emergency Department Note ---
History of Present Illness General Chief complaint: Knee Injury/Pain Stated complaint: KNEE REPLACED,KNEE PAIN,FEVER Time Seen by Provider: 06/25/22 03:56 History of Present Illness Maximum Pain Intensity: 3 This 57-year-old male patient 2 weeks status post left total knee arthroplasty completed by Dr. Orourke presents to the emergency department today for evaluation of left knee infection. Patient states since his surgery, he has had low-grade temperatures of about 99 F. He had his mike out earlier this week and evaluation looked good at that time. The patient states he had PT yesterday and had some increased soreness in the area of the incision site. He assumed the soreness was due to his PT. He went to bed and awoke suddenly at about 2 AM with chills, diaphoresis, increased pain in the left knee and incision site, noted a temperature of about 101 to 102 F. He decided to come to the emergency department for further evaluation. He has not been taking any medications for his symptoms. He rates his pain 8/10 and describes it as sharp and throbbing. Home Medications Medication Instructions Recorded Confirmed Type amlodipine 5 mg tablet 5 mg PO QAM 10/14/20 04/16/22 History bupropion HCl 150 mg 24 hr tablet, 150 mg PO QAM 10/14/20 04/16/22 History extended release citalopram 20 mg tablet 20 mg PO QAM 10/14/20 04/16/22 History lisinopril 20 1 tab PO QAM 10/14/20 04/16/22 History mg-hydrochlorothiazide 12.5 mg tablet multivitamin 1 tab PO QAM 10/14/20 04/16/22 History acetaminophen 500 mg tablet 1,000 mg PO Q8H 30 days #180 tabs 06/09/22 Rx (Tylenol Extra Strength) docusate sodium 100 mg capsule 100 mg PO BID #14 caps 06/09/22 Rx (Colace) enoxaparin 30 mg/0.3 mL 30 mg (0.3 mL) subcut BID 14 days 06/09/22 Rx subcutaneous syringe (Lovenox) #28 SYRINGES oxycodone 5 mg tablet 5 - 10 mg PO Q4H PRN pain #20 tabs 06/09/22 Rx tramadol 50 mg tablet 50 - 100 mg PO Q4H PRN pain #20 06/09/22 Rx tabs Allergies Allergy/AdvReac Type Severity Reaction Status Date / Time iodine Allergy Unknown N/V, Verified 06/25/22 08:51 SWELLING shellfish derived Allergy Unknown N/V Verified 06/25/22 08:51 SWELLING Past Med/Surg History Medical History Anxiety Back pain Depression Esophageal reflux intermittent, stable per pt History of COVID-05 September 2021 -- treated with the antibody treatment--full recovery Hypertension controlled, stable per pt Psoriasis Surgical History (Updated 06/25/22 @ 08:47 by Mihaela aDley PA-C) Biceps tendon rupture right with repair History of colonoscopy History of deviated nasal septum with repair History of esophagogastroduodenoscopy (EGD) History of tooth extraction Hx of elbow surgery right S/P left knee arthroscopy 10/24/20: LMA#5. Family History Mother Diabetes Other No family history of adverse response to anesthesia Social History Smoking Status: Current every day smoker Tobacco Type: Smokeless Tobacco (Dip or Chew) Second Hand Exposure: No; Hx Alcohol Use: Yes Hx Substance Use: No Preferred Language: Spanish Communication Ability: Effective Director Of Enrollment Required: No Beliefs That Will Affect Care: None marital status: Current Living Situation: Spouse Feels Safe at Home: Yes Assistive Devices: Walker Review of Systems A total of 10 systems reviewed and were otherwise negative Physical Exam Vital Signs Vital Signs - 24 hr 06/25/22 03:52 06/25/22 04:04 06/25/22 04:30 Temperature 37.2 C Temperature Source Temporal Artery Scan Pulse Rate 16 L 104 H Pulse Rate from SpO2 Sensor Pulse Rhythm Respiratory Rate 22 18 Respiratory Effort / Characteristics Non-Labored Blood Pressure 140/88 161/88 H Blood Pressure Mean 105 112 Pulse Oximetry 96 98 Oxygen Delivery Method Room Air Room Air Sepsis Recent Fever Within 48 Hours Yes Sepsis New/Unexplained Change in Mental Status No Sepsis Action Taken by Nursing No Action Required 06/25/22 04:34 06/25/22 05:04 06/25/22 05:04 Temperature 37.6 C H Temperature Source Oral Pulse Rate Pulse Rate from SpO2 Sensor Pulse Rhythm Respiratory Rate Respiratory Effort / Characteristics Non-Labored Non-Labored Blood Pressure Blood Pressure Mean Pulse Oximetry Oxygen Delivery Method Sepsis Recent Fever Within 48 Hours Sepsis New/Unexplained Change in Mental Status Sepsis Action Taken by Nursing 06/25/22 05:00 06/25/22 05:14 06/25/22 05:30 Temperature Temperature Source Pulse Rate 104 H 104 H Pulse Rate from SpO2 Sensor Pulse Rhythm Respiratory Rate 15 19 Respiratory Effort / Characteristics Non-Labored Blood Pressure 148/89 H 142/92 H Blood Pressure Mean 108 108 Pulse Oximetry 97 96 Oxygen Delivery Method Room Air Room Air Sepsis Recent Fever Within 48 Hours Sepsis New/Unexplained Change in Mental Status Sepsis Action Taken by Nursing 06/25/22 05:30 06/25/22 06:00 06/25/22 06:00 Temperature Temperature Source Pulse Rate 109 H 108 H Pulse Rate from SpO2 Sensor Pulse Rhythm Respiratory Rate 20 19 Respiratory Effort / Characteristics Non-Labored Blood Pressure 149/86 H 157/90 H Blood Pressure Mean 107 112 Pulse Oximetry 93 97 Oxygen Delivery Method Room Air Room Air Sepsis Recent Fever Within 48 Hours Sepsis New/Unexplained Change in Mental Status Sepsis Action Taken by Nursing 06/25/22 06:30 06/25/22 06:35 06/25/22 07:00 Temperature Temperature Source Pulse Rate 106 H Pulse Rate from SpO2 Sensor Pulse Rhythm Respiratory Rate 26 H Respiratory Effort / Characteristics Non-Labored Non-Labored Blood Pressure 125/71 Blood Pressure Mean 89 Pulse Oximetry 96 93 Oxygen Delivery Method Room Air Room Air Sepsis Recent Fever Within 48 Hours Sepsis New/Unexplained Change in Mental Status Sepsis Action Taken by Nursing 06/25/22 07:30 06/25/22 07:43 06/25/22 07:00 Temperature Temperature Source Pulse Rate 102 H 105 H Pulse Rate from SpO2 Sensor 106 H Pulse Rhythm Regular Respiratory Rate 26 H 18 17 Respiratory Effort / Characteristics Non-Labored Blood Pressure 118/66 Blood Pressure Mean 83 Pulse Oximetry 93 94 93 Oxygen Delivery Method Room Air Room Air Sepsis Recent Fever Within 48 Hours Sepsis New/Unexplained Change in Mental Status Sepsis Action Taken by Nursing 06/25/22 07:30 06/25/22 08:00 06/25/22 08:30 Temperature Temperature Source Pulse Rate 102 H Pulse Rate from SpO2 Sensor 101 H Pulse Rhythm Respiratory Rate 18 18 18 Respiratory Effort / Characteristics Non-Labored Non-Labored Blood Pressure 117/82 Blood Pressure Mean 93 Pulse Oximetry 94 94 94 Oxygen Delivery Method Room Air Room Air Sepsis Recent Fever Within 48 Hours Sepsis New/Unexplained Change in Mental Status Sepsis Action Taken by Nursing 06/25/22 08:00 06/25/22 08:30 06/25/22 09:00 Temperature Temperature Source Pulse Rate 100 H 95 H Pulse Rate from SpO2 Sensor 99 H 96 H Pulse Rhythm Respiratory Rate 17 19 19 Respiratory Effort / Characteristics Non-Labored Blood Pressure 131/78 131/94 Blood Pressure Mean 95 106 Pulse Oximetry 93 97 97 Oxygen Delivery Method Room Air Sepsis Recent Fever Within 48 Hours Sepsis New/Unexplained Change in Mental Status Sepsis Action Taken by Nursing 06/25/22 09:00 Temperature Temperature Source Pulse Rate 94 H Pulse Rate from SpO2 Sensor 94 H Pulse Rhythm Respiratory Rate 16 Respiratory Effort / Characteristics Blood Pressure 123/76 Blood Pressure Mean 91 Pulse Oximetry 97 Oxygen Delivery Method Sepsis Recent Fever Within 48 Hours Sepsis New/Unexplained Change in Mental Status Sepsis Action Taken by Nursing VITALS: Vitals are noted on the nurse's note and reviewed by myself. Patient with elevated temperature of 37.6 degrees Celsius and tachycardic. GENERAL: This is a 57-year-old white male, in no acute distress, nondiaphoretic, well-developed well-nourished. SKIN: Erythema and edema surrounding the incision site on the left anterior knee. No purulent discharge. There is tenderness to palpation of this area. No fluctuance. The skin was otherwise without rashes, erythema, edema, or bruising. There is no tenting of the skin. Capillary refill less than 2 seconds. Negative Li's sign. HEAD: Normocephalic atraumatic. EYES: Conjunctivae without injection, sclerae without icterus. NECK: Supple without nuchal rigidity. No lymphadenopathy. No JVD. HEART: Regular rate and rhythm without murmurs gallops or rubs. LUNGS: Clear to auscultation bilaterally without wheezes, rales or rhonchi. No retractions or accessory muscle use. ABDOMEN: Positive bowel sounds x 4. Soft, nontender, without masses or organomegaly. Mahoney sign negative. No guarding or rebound tenderness. MUSCULOSKELETAL: No muscle atrophy. Erythema and edema in the area of the incision site on the left anterior knee as previously noted. Decreased ROM of the left knee post-operatively. Otherwise, full range of motion without joint tenderness in all other extremities. Limping gait. Strength 5/5 throughout. NEURO: Patient was alert and oriented to person place and time. Normal sensation to light and sharp touch. No focal neurological deficits. Course Course The patient was seen and evaluated as above. An order was placed for continuous cardiac monitoring. The monitor shows a sinus tachycardia at a rate of 116 bpm. IV access obtained, labs drawn. Given the patient's tachycardia and elevated temperature, blood cultures obtained. Patient hydrated with IV fluids and medicated with IV cefepime and Zosyn. Imaging performed and reviewed by myself as noted. Labs reviewed by myself. I discussed the findings with the patient at bedside. I discussed the case with my attending. I discussed the case with Dr. Strauss, orthopedic surgeon on-call. He would prefer to contact Dr. Orourke, given this is his post-operative patient. Dr. Orourke did call back into the emergency department. I discussed the case with him at bedside. Advised him of the care provided here in the ED and current patient condition. He will come to the ED to evaluate the patient. The patient will be admitted to Dr. Orourke's service. Please see orthopedics dictation regarding ongoing management and care. Administered Medications Discontinued Medications Cefepime HCl (Maxipime) 2,000 mg in 20 mls @ 5 mls/min IV NOW STA; Protocol Stop: 06/25/22 04:07 Last Admin: 06/25/22 04:43 Dose: 5 mls/min Documented By: BREEZY Piperacillin Sod/Tazobactam (Sod 4.5 gm/ Dextrose) 120 mls @ 30 mls/hr IV Q8H [facility]; Protocol Stop: 06/27/22 04:14 Last Admin: 06/25/22 05:41 Dose: Not Given Documented By: MARY Piperacillin Sod/Tazobactam Sod (Zosyn) 4.5 gm in 120 mls @ 240 mls/hr IV NOW STA; Protocol Stop: 06/25/22 05:28 Last Infusion: 06/25/22 05:35 Dose: 0 mls/hr Documented By: Admin: 06/25/22 05:05 Dose: 240 mls/hr Documented By: MARY Sodium Chloride (Nss 1000ml) 2,000 mls @ 999 mls/hr IV .Q2H1M ONE Stop: 06/25/22 07:05 Last Infusion: 06/25/22 07:41 Dose: 0 mls/hr Documented By: Admin: 06/25/22 05:15 Dose: 999 mls/hr Documented By: MARY Acetaminophen (Ofirmev) 1,000 mg in 100 mls @ 400 mls/hr IV NOW STA Stop: 06/25/22 05:19 Last Infusion: 06/25/22 05:30 Dose: 0 mls/hr Documented By: Admin: 06/25/22 05:15 Dose: 400 mls/hr Documented By: MARY Morphine Sulfate (Morphine Sulfate 10 Mg/Ml Carp/Vial) 8 mg IV NOW STA Stop: 06/25/22 05:06 Last Admin: 06/25/22 05:12 Dose: 8 mg Documented By: MARY Ondansetron HCl (Ondansetron Inj 2 Mg/Ml 2 Ml Vial) 4 mg IV NOW STA Stop: 06/25/22 05:06 Last Admin: 06/25/22 05:11 Dose: 4 mg Documented By: MARY Medical Decision Making Differential Diagnosis Cellulitis, abscess, MRSA infection, DVT, necrotizing fasciitis, dermatitis, drug eruption, allergic reaction, as well as other pathologies. Medical Records Attestation: I reviewed the patient's medical records. Home Medications Current Medication List: was personally reviewed by me Laboratory Data Attestation: I reviewed the patient's lab results. Leukocytosis of 14,000. Mild anemia with Hgb 12.6. INR 1.0. Renal, hepatic function and electrolytes without significant abnormality. Lactic acid 1.8. Procalcitonin 0.06. Inflammatory markers elevated. Result diagrams: 06/25/22 04:15 06/25/22 04:15 Lab Results 06/25/22 06/25/22 06/25/22 Range/Units 04:15 04:15 04:15 WBC 14.29 H (4.8-10.8) K/ul RBC 4.00 L (4.63-6.08) M/uL Hgb 12.6 L (14.0-18.0) g/dl Hct 37.6 L (40.1-51.0) % MCV 94.0 (80.0-100.0) fL MCH 31.5 (25.0-34.0) pg MCHC 33.5 (32.0-36.0) g/dL RDW Std Deviation 43.8 (36.4-46.3) fL RDW Coeff of Michelle 12.8 (11.5-14.5) % Plt Count 299 (130-400) K/uL MPV 8.5 L (9.4-12.4) fL Immature Gran % (Auto) 0.7 % Neut % (Auto) 76.4 % Lymph % (Auto) 12.0 % [place] % (Auto) 8.6 % Eos % (Auto) 1.7 % Baso % (Auto) 0.6 % Neut # (Auto) 10.93 H (1.4-6.5) K/uL Lymph # (Auto) 1.71 (1.2-3.4) K/uL [place] # (Auto) 1.23 H (0.24-0.82) K/uL Eos # (Auto) 0.24 (0-0.50) K/uL Baso # (Auto) 0.08 (0-0.2) K/uL Immature Gran # (Auto) 0.10 H (0.00-0.02) K/uL ESR (0-20) mm/hr PT 10.8 (9.0-12.0) Seconds INR 1.0 (0.9-1.1) APTT 28.8 (21.0-31.0) Seconds PTT Ratio 1.0 Sodium 132 L (136-145) mmol/L Potassium 3.9 (3.5-5.1) mmol/L Chloride 100 (98-107) mmol/L Carbon Dioxide 24 (21-32) mmol/L Anion Gap 8 (3-11) BUN 13 (6-23) mg/dl Creatinine 1.14 (0.6-1.4) mg/dl Est Cr Clr Drug Dosing 93.5 ml/min Est GFR ( Amer) 83.4 ml/min Est GFR (Non-Af Amer) 72.0 ml/min BUN/Creatinine Ratio 11.4 (10-20) Glucose 133 H (70-99(Fasting)) mg/dl Lactate (0.4-2.0) mmol/L Calcium 8.9 (8.5-10.1) mg/dl Magnesium 1.8 (1.7-2.4) mg/dl Total Bilirubin 0.5 (0.2-1.0) mg/dl AST 17 (13-39) U/L ALT 14 (7-52) U/L Alkaline Phosphatase 55 (34-104) U/L C-Reactive Protein (0-0.5) mg/dl Total Protein 6.8 (6.0-8.3) gm/dl Albumin 3.8 (3.4-5.0) gm/dl Globulin 3.0 (2.5-4.0) gm/dl Albumin/Globulin Ratio 1.3 (0.9-2) Procalcitonin (0-0.5) ng/ml Urine Color Urine Appearance (Clear) Urine pH (4.5-7.5) Ur Specific [place] (1.000-1.030) Urine Protein (Negative) Urine Glucose (UA) (Negative) Urine Ketones (Negative) Urine Blood (Negative) Urine Nitrite (Negative) Urine Bilirubin (Negative) Urine Urobilinogen (Negative) Ur Leukocyte Esterase (Negative) Fluid Comment SARS-CoV-2 (PCR) (Negative) 06/25/22 06/25/22 06/25/22 Range/Units 04:15 04:15 04:15 WBC (4.8-10.8) K/ul RBC (4.63-6.08) M/uL Hgb (14.0-18.0) g/dl Hct (40.1-51.0) % MCV (80.0-100.0) fL MCH (25.0-34.0) pg MCHC (32.0-36.0) g/dL RDW Std Deviation (36.4-46.3) fL RDW Coeff of Michelle (11.5-14.5) % Plt Count (130-400) K/uL MPV (9.4-12.4) fL Immature Gran % (Auto) % Neut % (Auto) % Lymph % (Auto) % [place] % (Auto) % Eos % (Auto) % Baso % (Auto) % Neut # (Auto) (1.4-6.5) K/uL Lymph # (Auto) (1.2-3.4) K/uL [place] # (Auto) (0.24-0.82) K/uL Eos # (Auto) (0-0.50) K/uL Baso # (Auto) (0-0.2) K/uL Immature Gran # (Auto) (0.00-0.02) K/uL ESR 52 H (0-20) mm/hr PT (9.0-12.0) Seconds INR (0.9-1.1) APTT (21.0-31.0) Seconds PTT Ratio Sodium (136-145) mmol/L Potassium (3.5-5.1) mmol/L Chloride (98-107) mmol/L Carbon Dioxide (21-32) mmol/L Anion Gap (3-11) BUN (6-23) mg/dl Creatinine (0.6-1.4) mg/dl Est Cr Clr Drug Dosing ml/min Est GFR ( Amer) ml/min Est GFR (Non-Af Amer) ml/min BUN/Creatinine Ratio (10-20) Glucose (70-99(Fasting)) mg/dl Lactate 1.8 (0.4-2.0) mmol/L Calcium (8.5-10.1) mg/dl Magnesium (1.7-2.4) mg/dl Total Bilirubin (0.2-1.0) mg/dl AST (13-39) U/L ALT (7-52) U/L Alkaline Phosphatase (34-104) U/L C-Reactive Protein (0-0.5) mg/dl Total Protein (6.0-8.3) gm/dl Albumin (3.4-5.0) gm/dl Globulin (2.5-4.0) gm/dl Albumin/Globulin Ratio (0.9-2) Procalcitonin 0.06 (0-0.5) ng/ml Urine Color Urine Appearance (Clear) Urine pH (4.5-7.5) Ur Specific [place] (1.000-1.030) Urine Protein (Negative) Urine Glucose (UA) (Negative) Urine Ketones (Negative) Urine Blood (Negative) Urine Nitrite (Negative) Urine Bilirubin (Negative) Urine Urobilinogen (Negative) Ur Leukocyte Esterase (Negative) Fluid Comment SARS-CoV-2 (PCR) (Negative) 06/25/22 06/25/22 06/25/22 Range/Units 04:15 05:50 07:30 WBC (4.8-10.8) K/ul RBC (4.63-6.08) M/uL Hgb (14.0-18.0) g/dl Hct (40.1-51.0) % MCV (80.0-100.0) fL MCH (25.0-34.0) pg MCHC (32.0-36.0) g/dL RDW Std Deviation (36.4-46.3) fL RDW Coeff of Michelle (11.5-14.5) % Plt Count (130-400) K/uL MPV (9.4-12.4) fL Immature Gran % (Auto) % Neut % (Auto) % Lymph % (Auto) % [place] % (Auto) % Eos % (Auto) % Baso % (Auto) % Neut # (Auto) (1.4-6.5) K/uL Lymph # (Auto) (1.2-3.4) K/uL [place] # (Auto) (0.24-0.82) K/uL Eos # (Auto) (0-0.50) K/uL Baso # (Auto) (0-0.2) K/uL Immature Gran # (Auto) (0.00-0.02) K/uL ESR (0-20) mm/hr PT (9.0-12.0) Seconds INR (0.9-1.1) APTT (21.0-31.0) Seconds PTT Ratio Sodium (136-145) mmol/L Potassium (3.5-5.1) mmol/L Chloride (98-107) mmol/L Carbon Dioxide (21-32) mmol/L Anion Gap (3-11) BUN (6-23) mg/dl Creatinine (0.6-1.4) mg/dl Est Cr Clr Drug Dosing ml/min Est GFR ( Amer) ml/min Est GFR (Non-Af Amer) ml/min BUN/Creatinine Ratio (10-20) Glucose (70-99(Fasting)) mg/dl Lactate (0.4-2.0) mmol/L Calcium (8.5-10.1) mg/dl Magnesium (1.7-2.4) mg/dl Total Bilirubin (0.2-1.0) mg/dl AST (13-39) U/L ALT (7-52) U/L Alkaline Phosphatase (34-104) U/L C-Reactive Protein 2.61 H (0-0.5) mg/dl Total Protein (6.0-8.3) gm/dl Albumin (3.4-5.0) gm/dl Globulin (2.5-4.0) gm/dl Albumin/Globulin Ratio (0.9-2) Procalcitonin (0-0.5) ng/ml Urine Color Yellow Urine Appearance Clear (Clear) Urine pH 7.5 (4.5-7.5) Ur Specific [place] 1.012 (1.000-1.030) Urine Protein Negative (Negative) Urine Glucose (UA) Negative (Negative) Urine Ketones Negative (Negative) Urine Blood Negative (Negative) Urine Nitrite Negative (Negative) Urine Bilirubin Negative (Negative) Urine Urobilinogen Negative (Negative) Ur Leukocyte Esterase Negative (Negative) Fluid Comment SARS-CoV-2 (PCR) NEGATIVE (Negative) 06/25/22 Range/Units 08:44 WBC (4.8-10.8) K/ul RBC (4.63-6.08) M/uL Hgb (14.0-18.0) g/dl Hct (40.1-51.0) % MCV (80.0-100.0) fL MCH (25.0-34.0) pg MCHC (32.0-36.0) g/dL RDW Std Deviation (36.4-46.3) fL RDW Coeff of Michelle (11.5-14.5) % Plt Count (130-400) K/uL MPV (9.4-12.4) fL Immature Gran % (Auto) % Neut % (Auto) % Lymph % (Auto) % [place] % (Auto) % Eos % (Auto) % Baso % (Auto) % Neut # (Auto) (1.4-6.5) K/uL Lymph # (Auto) (1.2-3.4) K/uL [place] # (Auto) (0.24-0.82) K/uL Eos # (Auto) (0-0.50) K/uL Baso # (Auto) (0-0.2) K/uL Immature Gran # (Auto) (0.00-0.02) K/uL ESR (0-20) mm/hr PT (9.0-12.0) Seconds INR (0.9-1.1) APTT (21.0-31.0) Seconds PTT Ratio Sodium (136-145) mmol/L Potassium (3.5-5.1) mmol/L Chloride (98-107) mmol/L Carbon Dioxide (21-32) mmol/L Anion Gap (3-11) BUN (6-23) mg/dl Creatinine (0.6-1.4) mg/dl Est Cr Clr Drug Dosing ml/min Est GFR ( Amer) ml/min Est GFR (Non-Af Amer) ml/min BUN/Creatinine Ratio (10-20) Glucose (70-99(Fasting)) mg/dl Lactate (0.4-2.0) mmol/L Calcium (8.5-10.1) mg/dl Magnesium (1.7-2.4) mg/dl Total Bilirubin (0.2-1.0) mg/dl AST (13-39) U/L ALT (7-52) U/L Alkaline Phosphatase (34-104) U/L C-Reactive Protein (0-0.5) mg/dl Total Protein (6.0-8.3) gm/dl Albumin (3.4-5.0) gm/dl Globulin (2.5-4.0) gm/dl Albumin/Globulin Ratio (0.9-2) Procalcitonin (0-0.5) ng/ml Urine Color Urine Appearance (Clear) Urine pH (4.5-7.5) Ur Specific [place] (1.000-1.030) Urine Protein (Negative) Urine Glucose (UA) (Negative) Urine Ketones (Negative) Urine Blood (Negative) Urine Nitrite (Negative) Urine Bilirubin (Negative) Urine Urobilinogen (Negative) Ur Leukocyte Esterase (Negative) Fluid Comment SARS-CoV-2 (PCR) (Negative) Imaging Data Radiologist's Impression: Chest X-Ray 06/25/22 04:04 XR chest 1V portable CLINICAL HISTORY: Fever. COMPARISON STUDY: Chest radiograph April 21, 2022. FINDINGS: Lung volumes are mildly diminished. Lungs are clear. There is no pneumothorax or pleural effusion. Cardiac size is normal. Mediastinal contours are normal. There is no evidence for pulmonary edema. IMPRESSION: No acute cardiopulmonary findings. ACT 112: Negative or not required by law. Electronically signed by: Toño Sanderson M.D. 06/25/2022 8:28 AM Knee X-Ray 06/25/22 04:09 XR knee LT 3V HISTORY: 57 years-old Male pain, redness, swelling post-op [knee total joint arthroplasty. COMPARISON: Left knee radiographs 06/09/2022 TECHNIQUE: 3 views of the left knee FINDINGS: Total joint arthroplasty with patellar resurfacing. No acute fracture, alignment or unexpected opaque foreign body. There is moderate soft tissue swelling with a large joint effusion. A locule of air is noted inferior to the patella. IMPRESSION: 1. Satisfactory alignment of the total joint arthroplasty. No acute fracture or unexpected opaque foreign body. 2. Diffuse soft tissue swelling with large joint effusion. ACT 112: Negative or not required by law. The above report was generated using voice recognition software. It may contain grammatical, syntax or spelling errors. Electronically signed by: Klever Tinajero M.D. 06/25/2022 8:21 AM Blood Pressure Blood Pressure Findings: Normal blood pressure MDM Narrative This 57-year-old male patient presents to the emergency department today, 2 weeks status post left total knee arthroplasty. Patient has evidence of postoperative infection with erythema, edema, and tenderness of the incision site over the left knee. The patient is febrile and tachycardic upon arrival. IV access obtained, labs drawn. Patient was hydrated with IV fluids and me dicated with antibiotics. I did consult with orthopedics who would like to see the patient in person and come up with the plan. They would like to admit the patient. Please see orthopedics dictation regarding ongoing management and care of this patient. The chart was completed utilizing [employer] voice recognition software. Grammatical errors, random word insertions, pronoun errors, and incomplete sentences are an occasional consequence of this system due to software limitations, ambient noise, and hardware issues. Any formal questions or concerns about the content, text, or information contained within the body of this dictation should be directly addressed to the provider for clarification. Impression & Plan Status post total left knee replacement, Postoperative infection of knee, Fever, Tachycardia Discharge Plan Visit Data Chief Complaint: Knee Injury/Pain Stated Complaint: KNEE REPLACED,KNEE PAIN,FEVER ED Provider: Alicia Wallace ED Midlevel Provider: Mihaela Daley Discharge Problem: Status post total left knee replacement, Postoperative infection of knee, Fever, Tachycardia Forms Stand Alone Forms: [facility] Prescriptions Prescriptions: No Action multivitamin Tablet 1 tab PO QAM lisinopril-hydrochlorothiazide 20-12.5 mg Tablet 1 tab PO QAM citalopram 20 mg Tablet 20 mg PO QAM amlodipine 5 mg Tablet 5 mg PO QAM bupropion HCl 150 mg Tablet Extended Release 24 Hr 150 mg PO QAM enoxaparin [Lovenox] 30 mg/0.3 mL syringe 30 mg SQ BID 14 Days Qty: 28 1RF Rx Instructions: Start day of surgery at 10 p.m. oxycodone 5 mg tablet 5 - 10 mg PO Q4H PRN (Reason: pain) Qty: 20 0RF Rx Instructions: 5mg for pain 1-5 10 mg for pain 6-10 tramadol 50 mg tablet 50 - 100 mg PO Q4H PRN (Reason: pain) Qty: 20 0RF acetaminophen [Tylenol Extra Strength] 500 mg tablet 1,000 mg PO Q8H 30 Days Qty: 180 0RF docusate sodium [Colace] 100 mg capsule 100 mg PO BID Qty: 14 0RF Rx Instructions: while on pain medication Referrals Referrals: Osiel Bennett DO [Primary Care Provider] -
--- NOTE | 2022-06-25 08:22 | XRay Report ---
XR knee LT 3V HISTORY: 57 years-old Male pain, redness, swelling post-op [knee total joint arthroplasty. COMPARISON: Left knee radiographs 06/09/2022 TECHNIQUE: 3 views of the left knee FINDINGS: Total joint arthroplasty with patellar resurfacing. No acute fracture, alignment or unexpected opaque foreign body. There is moderate soft tissue swelling with a large joint effusion. A locule of air is noted inferior to the patella. IMPRESSION: 1. Satisfactory alignment of the total joint arthroplasty. No acute fracture or unexpected opaque for eign body. 2. Diffuse soft tissue swelling with large joint effusion. ACT 112: Negative or not required by law. The above report was generated using voice recognition software. It may contain grammatical, syntax o r spelling errors. Electronically signed by: Klever Tinajero M.D. 06/25/2022 8:21 AM
--- NOTE | 2022-06-25 08:29 | XRay Report ---
XR chest 1V portable CLINICAL HISTORY: Fever. COMPARISON STUDY: Chest radiograph April 21, 2022. FINDINGS: Lung volumes are mildly diminished. Lungs are clear. There is no pneumothorax or pleural ef fusion. Cardiac size is normal. Mediastinal contours are normal. There is no evidence for pulmonary e tiana. IMPRESSION: No acute cardiopulmonary findings. ACT 112: Negative or not required by law. Electronically signed by: Toño Sanderson M.D. 06/25/2022 8:28 AM
--- NOTE | 2022-06-25 08:53 | History & Physical Report ---
Date of Service June 25, 2022 History of Present Illness Chief Complaint: left knee pain and redness, fever, s/p left TKA Primary Care Provider: Osiel Bennett DO Patient is a 57 year old male, s/p left total knee arthroplasty with Dr. Orourke on 06/09/22. He has been doing well post op with low grade temps on and off Allergies Allergy/AdvReac Type Severity Reaction Status Date / Time iodine Allergy Unknown N/V, Verified 06/25/22 08:51 SWELLING shellfish derived Allergy Unknown N/V Verified 06/25/22 08:51 SWELLING Home Medications Medication Instructions Recorded Confirmed Type amlodipine 5 mg tablet 5 mg PO QAM 10/14/20 04/16/22 History bupropion HCl 150 mg 24 hr tablet, 150 mg PO QAM 10/14/20 04/16/22 History extended release citalopram 20 mg tablet 20 mg PO QAM 10/14/20 04/16/22 History lisinopril 20 1 tab PO QAM 10/14/20 04/16/22 History mg-hydrochlorothiazide 12.5 mg tablet multivitamin 1 tab PO QAM 10/14/20 04/16/22 History acetaminophen 500 mg tablet 1,000 mg PO Q8H 30 days #180 tabs 06/09/22 Rx (Tylenol Extra Strength) docusate sodium 100 mg capsule 100 mg PO BID #14 caps 06/09/22 Rx (Colace) enoxaparin 30 mg/0.3 mL 30 mg (0.3 mL) subcut BID 14 days 06/09/22 Rx subcutaneous syringe (Lovenox) #28 SYRINGES oxycodone 5 mg tablet 5 - 10 mg PO Q4H PRN pain #20 tabs 06/09/22 Rx tramadol 50 mg tablet 50 - 100 mg PO Q4H PRN pain #20 06/09/22 Rx tabs Past Med/Surg History Medical History Anxiety Back pain Depression Esophageal reflux intermittent, stable per pt History of COVID-05 September 2021 -- treated with the antibody treatment--full recovery Hypertension controlled, stable per pt Psoriasis Surgical History (Updated 06/25/22 @ 08:47 by Mihaela Daley PA-C) Biceps tendon rupture right with repair History of colonoscopy History of deviated nasal septum with repair History of esophagogastroduodenoscopy (EGD) History of tooth extraction Hx of elbow surgery right S/P left knee arthroscopy 10/24/20: LMA#5. 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 Beliefs That Will Affect Care: None marital status: Current Living Situation: Spouse Feels Safe at Home: Yes Assistive Devices: Walker Results & Data Results & Data ([facility]) Vital Signs (Past 12 Hours) Vital Signs Temp Pulse Resp BP Pulse Ox O2 Del Method 06/25/22 07:30 102 H 18 117/82 94 06/25/22 07:00 105 H 17 118/66 93 06/25/22 07:43 102 H 18 94 Room Air 06/25/22 07:30 26 H 93 Room Air 06/25/22 07:00 93 Room Air 06/25/22 06:35 106 H 26 H 125/71 96 Room Air 06/25/22 06:00 108 H 19 157/90 H 97 Room Air 06/25/22 05:30 109 H 20 149/86 H 93 Room Air 06/25/22 05:14 104 H 19 142/92 H 96 Room Air 06/25/22 05:00 104 H 15 148/89 H 97 Room Air 06/25/22 05:04 37.6 C H 06/25/22 04:30 104 H 18 161/88 H 98 Room Air 06/25/22 03:52 37.2 C 16 L 22 140/88 96 Room Air
[2022-06-25] MEDS ORDERED: VANCOMYCIN HCL 2,500 MG in SODIUM CHLORIDE 0.9% 500 ML IV ONE (08:54)
[2022-06-25] MEDS ORDERED: VANCOMYCIN CONSULT ACTIVE PRN (08:54)
--- NOTE | 2022-06-25 09:52 | Ultrasound Report ---
LEFT LOWER EXTREMITY VENOUS DOPPLER CLINICAL HISTORY: Left leg swelling. Evaluate for deep venous thrombus. COMPARISON STUDY: No previous studies for comparison. TECHNIQUE: Sonography of the deep venous system of the left lower extremity was performed. Compressi on and augmentation were evaluated. FINDINGS: The left common femoral, superficial femoral and popliteal veins were compressible. Augmen tation was normal. Flow was shown within the deep calf vessels. Subcutaneous edema of the left leg is noted. IMPRESSION: No evidence of deep venous thrombus within the left lower extremity. ACT 112: Negative or not required by law. Electronically signed by: Toño Sanderson M.D. 06/25/2022 9:50 AM
--- NOTE | 2022-06-25 10:12 | History and Physical Report ---
DATE OF SERVICE: 06/25/2022. The patient is a 57-year-old male who is a 2-1/2 weeks out from a left total knee arthroplasty. He w as doing very well and in fact was seen in the office 2 days ago. Everything looked fine at that rajendra e. His mike were removed and he will continue with physical therapy. He had regular PT yesterday . He takes Humira for psoriasis, which has been held preoperatively and he has not restarted it. He noted increased pain at the bottom of his incision starting last evening. He developed a temperatur e up to 101 something. He had chills and sweats. He came to the ER. A sepsis workup was initiated. He received piperacillin/tazobactam. He denies dysuria, chest pain, cough, shortness of breath, ru nny nose, sore throat, headache, nausea, diarrhea. Nothing unusual with therapy. No accidents or in juries. He has a past medical history of anxiety, back pain, depression, GERD, history of COVID, hypertension , psoriasis. Surgically, he has had a biceps surgery, colonoscopy, deviated septum, EGD, tooth extraction, elbow s urgery and multiple left knee surgeries including knee replacement done on 06/10/2022. HE IS ALLERGIC TO IODINE AND SHELLFISH. Home medications include Tylenol, amlodipine, bupropion, citalopram, Colace, Lovenox, lisinopril, hyd rochlorothiazide, multivitamin, oxycodone, tramadol. 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 PHYSICAL EXAMINATION: CHEST: Clear to auscultation. HEART: Regular rate and rhythm. ABDOMEN: Obese, soft, nontender with active bowel sounds. Examination of the left leg reveals DP and PT pulses 1+. There is moderate swelling increased compar ed to a couple of days ago. He is able to do a straight leg raise and has 5/5 ankle and toe plantar flexion, dorsiflexion, inversion and eversion strength. Sensation intact. There is erythema over th e distal portion of the incision along with increased warmth. Calf is mildly tender medially with eq uivocal Homans sign. There is 1+ leg edema. Knee motion today is 0-45. Above the patella, there is no erythema or tenderness. The tenderness is really isolated to the distal 3 cm of the incision and somewhat lateral to that. The erythema extends over an area of about 8-10 cm in diameter centered o annabel the bottom of the incision. The incision itself is benign. There is no drainage and he has no f luctuance say for a small to moderate appropriate postoperative fluid collection within the left knee . There is some bruising on the medial thigh. His lateral thigh tenderness is improving and there i s no bruising or swelling noted there. PROCEDURE: Triple prep was performed. The knee is aspirated with an 18-gauge needle, yielding 15 mL of bloody fluid. This was sent for Gram stain, aerobic and anaerobic culture and crystal analysis, cell count with differential. Risks, benefits, treatment options, nurse witness, verbal consent perf ormed. He has been afebrile here in the hospital. Pulse has been in the low 100s. He did have elevated blo od pressures, but is now normotensive. White count is 14. It was 13, postoperatively. Hemoglobin 1 2.6, hematocrit 37.6, platelet count is 399. He has increased neutrophils of 11,000. His sed rate i s 52. PT/INR within normal limits. PRP is noted. C-reactive protein 2.6. UA is negative. Chest x -ray negative. X-ray of the knee demonstrates soft tissue swelling. Well positioned knee arthroplas ty. Positive effusion. Blood cultures are pending. IMPRESSION: Cellulitis of the left leg, status post total knee arthroplasty. PLAN: Findings were discussed with the patient. Recommended we admit him to the hospital. Aspirate the knee, start IV vancomycin now. Analyze for infection and gout. He has no history of gout. His COVID test is negative. There is no other obvious evidence of infection such as urinary tract or lynne ngs. We will get an ultrasound to rule out DVT. He will continue on his Lovenox. Elevate the leg. We will monitor the culture results from the knee to determine if surgery is necessary or if this is simply a cellulitis, treated with IV antibiotics. The area of redness was marked out. We will get an ID consult. Job ID: [id number]
[2022-06-25 10:50] LABS: Appearance Synovial Fluid Bloody; Color Synovial Fluid Red; Mononuclear WBC Synovial 46.7 %; Polynuclear WBC Synovial 53.3 %; RBC Synovial Fluid (A) 74000 /uL; Source Synovial Fluid Left Knee; WBC Synovial Fluid (A) 542 /ul (0-200)
[2022-06-25] MEDS ORDERED: ALUMINUM/MAGNESIUM SUSP 30 ML UDC PO PRN (11:40)
[2022-06-25] MEDS ORDERED: traMADol HCL 50 MG TABLET PO PRN ×2 (11:40→16:49)
[2022-06-25] MEDS ORDERED: HYDROmorphone INJ 0.5 MG/0.5 ML SYR IV PRN (11:40)
[2022-06-25] MEDS ORDERED: ONDANSETRON INJ 2 MG/ML 2 ML VIAL IV PRN (11:40)
[2022-06-25] MEDS ORDERED: diphenhydrAMINE Capsule 25 MG CAP PO PRN (11:40)
[2022-06-25] MEDS ORDERED: diphenhydrAMINE 50 MG/ML VIAL IV PRN (11:40)
--- NOTE | 2022-06-25 12:35 | Pharmacy Report ---
Pharmacy PK ABX Note - Date of Service June 25, 2022 - Assessment and Plan Assessment 57 year old M receiving IV vancomycin for treatment of skin and soft tissue infection. Patient is post op left total knee arthroplasty 2.5 weeks ago, and presents with fevers, pain, erythema, and swelling of incision site. Blood cultures pending, knee aspirate culture pending. Renal function stable. Day # 1 of antimicrobial therapy. Plan Vancomycin * Loading dose: 2500 mg IV x 1 * Maintenance dose: 1000 mg IV every 12 hours * Regimen is predicted to achieve target AUC/MICHAEL of 400-600 mg/L.hr * Drug level will be obtained around steady state if vancomycin continued, or sooner if clinically indicated. Pharmacy will continue to follow and will adjust dose/frequency as necessary. Thank you. Pharmacy has transitioned to AUC monitoring for vancomycin. AUC/MICHAEL is the preferred PK/PD target and is associated with decreased risk of nephrotoxicity compared to traditional trough targets.
[2022-06-25] MEDS: ENOXAPARIN INJ 30 MG/0.3 ML SYR SQ SCH (12:53)
[2022-06-25] MEDS: buPROPion XL 150 MG TABCR PO SCH (12:55)
[2022-06-25] MEDS: amLODIPine BESYLATE 5 MG TAB PO SCH (12:55)
[2022-06-25] MEDS: CITALOPRAM 40 MG TAB PO SCH (12:56)
[2022-06-25] MEDS: LISINOPRIL/HCTZ 20/12.5MG 1 TAB TAB PO SCH (12:56)
[2022-06-25] MEDS: PANTOprazole 40 MG TAB PO SCH (12:57)
[2022-06-25] MEDS: DOCUSATE SODIUM 100 MG CAP PO SCH ×2 (12:57→21:07)
[2022-06-25] MEDS: ACETAMINOPHEN 500 MG TAB PO SCH ×2 (13:03→21:07)
[2022-06-25] MEDS: SODIUM CHLORIDE 0.9% 1000ML 1,000 ML IV SCH (13:04)
--- NOTE | 2022-06-25 13:50 | Electrocardiogram Report ---
Test Reason : Blood Pressure : / mmHG Vent. Rate : 101 BPM Atrial Rate : 101 BPM P-R Int : 206 ms QRS Dur : 090 ms QT Int : 340 ms P-R-T Axes : 017 030 028 degrees QTc Int : 440 ms Sinus tachycardia Possible Left atrial enlargement Possible Anterior infarct , age undetermined Abnormal ECG When compared with ECG of 21-APR-2022 10:28, No significant change was found Confirmed by Kin Walters ([id number]) on 06/25/2022 1:49:54 PM Referred By: REFERRED SELF Confirmed By:Kin Walters
[2022-06-25] MEDS: oxyCODONE HCL IR 5 MG TAB (IMMEDIATE RELEASE) PO PRN ×2 (15:28→19:52)
[2022-06-26] MEDS: ENOXAPARIN INJ 30 MG/0.3 ML SYR SQ SCH ×2 (00:28→13:06)
[2022-06-26] MEDS: oxyCODONE HCL IR 5 MG TAB (IMMEDIATE RELEASE) PO PRN ×4 (05:37→20:19)
[2022-06-26] MEDS: VANCOMYCIN HCL 1,000 MG in SODIUM CHLORIDE 0.9% 250 ML IV SCH ×2 (05:38→17:15)
[2022-06-26] MEDS: ACETAMINOPHEN 500 MG TAB PO SCH ×3 (05:38→21:18)
[2022-06-26 06:19] LABS: Hematocrit (blood only) 32.8 % (40.1-51.0); Hemoglobin 10.7 g/dl (14.0-18.0); Mean Corpuscular Hemoglobin 30.9 pg (25.0-34.0); Mean Corpuscular Hgb Conc 32.6 g/dL (32.0-36.0); Mean Corpuscular Volume 94.8 fL (80.0-100.0); Mean Platelet Volume 8.5 fL (9.4-12.4); Platelet Count 235 K/uL (130-400); RDW Standard Deviation 44.7 fL (36.4-46.3); Red Blood Count 3.46 M/uL (4.63-6.08); White Blood Count 8.09 K/ul (4.8-10.8)
[2022-06-26 06:47] LABS: BUN Creatinine Ratio 12.3 (10-20); Calcium 8.4 mg/dl (8.5-10.1); Creatinine Clr Calc Pharmacy 99.6 ml/min; Est GFR (African American) 91.1 ml/min; Est GFR (Non-African American) 78.6 ml/min; Potassium 3.8 mmol/L (3.5-5.1)
--- NOTE | 2022-06-26 09:52 | Orthopedic Progress Note ---
Date of Service June 26, 2022 Assessment & Plan (1) Postoperative infection of knee: Plan: CRP and sed rate are both elevated Synovial fluid showed the presence of white blood cells We will hold off on formal PT/OT at this point Final results of the synovial culture pending Patient will continue on IV vancomycin Pain control can be with p.o. medication Ice knee with the 0 We will continue to follow while inpatient DVT prophylaxis with Lovenox Admission and Anticipated Discharge Date Admission Date: June 25, 2022 Subjective This 57-year-old male is seen this morning 1 day after being admitted for cellulitis of his left knee. Patient had the left knee replaced by Dr. Orourke about 2-1/2 weeks ago. He states that he was doing very well up until few days ago. He states that over the past few weeks he has had an intermittent low-grade fever and then yesterday he states that he went up to 100 degrees. He states that last night he has had 2 episodes of chills and sweating. He denies chest pain, shortness of breath, fever, nausea, vomiting, diarrhea but states that his left knee feels very tight and it is hard to bend. Review of Systems Review of Systems: All systems reviewed & are unremarkable except as noted in Subjective Physical Exam Physical Exam: Left knee: Surgical incision site is closed completely. There is an area of erythema to the distalmost aspect of the incision site that is approximately 7 cm x 3-1/2 cm in size. The area is not warm to touch. There is no palpable fluctuance. There is no drainage from the incision site. There is no ecchymosis. There is a palpable effusion proximal to the joint. Patient's range of motion is from 0 degrees of extension to about 80 degrees of flexion actively. He is able to form a straight leg raise test. He is able to actively dorsi and plantarflex his foot. His calf is soft and supple and nontender to palpation. His peripheral pulses are 2+. Capillary fill is less than 2 seconds. Quad strength is 3+ out of 5. He is neurovascularly intact. Results & Data ([facility]) Vital Signs (Past 12 Hours) Vital Signs Temp Pulse Resp BP Pulse Ox O2 Del Method 06/26/22 07:35 37.3 C 82 16 124/79 95 Room Air 06/26/22 00:06 37.5 C 89 18 126/71 96 Room Air Diagnostic Findings Laboratory Results WBC 8.09 K/ul (4.8-10.8) 06/26/22 05:56 RBC 3.46 M/uL (4.63-6.08) L 06/26/22 05:56 Hgb 10.7 g/dl (14.0-18.0) L 06/26/22 05:56 Hct 32.8 % (40.1-51.0) L 06/26/22 05:56 MCV 94.8 fL (80.0-100.0) 06/26/22 05:56 MCH 30.9 pg (25.0-34.0) 06/26/22 05:56 MCHC 32.6 g/dL (32.0-36.0) 06/26/22 05:56 RDW Std Deviation 44.7 fL (36.4-46.3) 06/26/22 05:56 RDW Coeff of Michelle 13.0 % (11.5-14.5) 06/26/22 05:56 Plt Count 235 K/uL (130-400) 06/26/22 05:56 MPV 8.5 fL (9.4-12.4) L 06/26/22 05:56 Immature Gran % (Auto) 0.7 % 06/25/22 04:15 Neut % (Auto) 76.4 % 06/25/22 04:15 Lymph % (Auto) 12.0 % 06/25/22 04:15 [place] % (Auto) 8.6 % 06/25/22 04:15 Eos % (Auto) 1.7 % 06/25/22 04:15 Baso % (Auto) 0.6 % 06/25/22 04:15 Neut # (Auto) 10.93 K/uL (1.4-6.5) H 06/25/22 04:15 Lymph # (Auto) 1.71 K/uL (1.2-3.4) 06/25/22 04:15 [place] # (Auto) 1.23 K/uL (0.24-0.82) H 06/25/22 04:15 Eos # (Auto) 0.24 K/uL (0-0.50) 06/25/22 04:15 Baso # (Auto) 0.08 K/uL (0-0.2) 06/25/22 04:15 Immature Gran # (Auto) 0.10 K/uL (0.00-0.02) H 06/25/22 04:15 ESR 52 mm/hr (0-20) H 06/25/22 04:15 PT 10.8 Seconds (9.0-12.0) 06/25/22 04:15 INR 1.0 (0.9-1.1) 06/25/22 04:15 APTT 28.8 Seconds (21.0-31.0) 06/25/22 04:15 PTT Ratio 1.0 06/25/22 04:15 Sodium 136 mmol/L (136-145) 06/26/22 05:56 Potassium 3.8 mmol/L (3.5-5.1) 06/26/22 05:56 Chloride 104 mmol/L (98-107) 06/26/22 05:56 Carbon Dioxide 27 mmol/L (21-32) 06/26/22 05:56 Anion Gap 5 (3-11) 06/26/22 05:56 BUN 13 mg/dl (6-23) 06/26/22 05:56 Creatinine 1.06 mg/dl (0.6-1.4) 06/26/22 05:56 Est Cr Clr Drug Dosing 99.6 ml/min 06/26/22 05:56 Est GFR ( Amer) 91.1 ml/min 06/26/22 05:56 Est GFR (Non-Af Amer) 78.6 ml/min 06/26/22 05:56 BUN/Creatinine Ratio 12.3 (10-20) 06/26/22 05:56 Glucose 107 mg/dl (70-99(Fasting)) H 06/26/22 05:56 Lactate 1.8 mmol/L (0.4-2.0) 06/25/22 04:15 Calcium 8.4 mg/dl (8.5-10.1) L 06/26/22 05:56 Magnesium 1.8 mg/dl (1.7-2.4) 06/25/22 04:15 Total Bilirubin 0.5 mg/dl (0.2-1.0) 06/25/22 04:15 AST 17 U/L (13-39) 06/25/22 04:15 ALT 14 U/L (7-52) 06/25/22 04:15 Alkaline Phosphatase 55 U/L (34-104) 06/25/22 04:15 C-Reactive Protein 2.61 mg/dl (0-0.5) H 06/25/22 04:15 Total Protein 6.8 gm/dl (6.0-8.3) 06/25/22 04:15 Albumin 3.8 gm/dl (3.4-5.0) 06/25/22 04:15 Globulin 3.0 gm/dl (2.5-4.0) 06/25/22 04:15 Albumin/Globulin Ratio 1.3 (0.9-2) 06/25/22 04:15 Procalcitonin 0.06 ng/ml (0-0.5) 06/25/22 04:15 Urine Color Yellow 06/25/22 05:50 Urine Appearance Clear (Clear) 06/25/22 05:50 Urine pH 7.5 (4.5-7.5) 06/25/22 05:50 Ur Specific [place] 1.012 (1.000-1.030) 06/25/22 05:50 Urine Protein Negative (Negative) 06/25/22 05:50 Urine Glucose (UA) Negative (Negative) 06/25/22 05:50 Urine Ketones Negative (Negative) 06/25/22 05:50 Urine Blood Negative (Negative) 06/25/22 05:50 Urine Nitrite Negative (Negative) 06/25/22 05:50 Urine Bilirubin Negative (Negative) 06/25/22 05:50 Urine Urobilinogen Negative (Negative) 06/25/22 05:50 Ur Leukocyte Esterase Negative (Negative) 06/25/22 05:50 Fluid Comment 06/25/22 08:44 Synovial Source Left Knee 06/25/22 08:44 Synovial Color Red 06/25/22 08:44 Synovial Appearance Bloody 06/25/22 08:44 Synovial WBC 542 /ul (0-200) H 06/25/22 08:44 Synovial RBC 61588 /uL 06/25/22 08:44 Synovial Polynuclear % 53.3 % 06/25/22 08:44 Synovial Mononuclear % 46.7 % 06/25/22 08:44 Synovial Crystals 06/25/22 08:44 SARS-CoV-2 (PCR) NEGATIVE (Negative) 06/25/22 07:30 Impressions Chest X-Ray 06/25/22 04:04 XR chest 1V portable CLINICAL HISTORY: Fever. COMPARISON STUDY: Chest radiograph April 21, 2022. FINDINGS: Lung volumes are mildly diminished. Lungs are clear. There is no pneumothorax or pleural effusion. Cardiac size is normal. Mediastinal contours are normal. There is no evidence for pulmonary edema. IMPRESSION: No acute cardiopulmonary findings. ACT 112: Negative or not required by law. Electronically signed by: Toño Sanderson M.D. 06/25/2022 8:28 AM Knee X-Ray 06/25/22 04:09 XR knee LT 3V HISTORY: 57 years-old Male pain, redness, swelling post-op [knee total joint arthroplasty. COMPARISON: Left knee radiographs 06/09/2022 TECHNIQUE: 3 views of the left knee FINDINGS: Total joint arthroplasty with patellar resurfacing. No acute fracture, alignment or unexpected opaque foreign body. There is moderate soft tissue swelling with a large joint effusion. A locule of air is noted inferior to the patella. IMPRESSION: 1. Satisfactory alignment of the total joint arthroplasty. No acute fracture or unexpected opaque foreign body. 2. Diffuse soft tissue swelling with large joint effusion. ACT 112: Negative or not required by law. The above report was generated using voice recognition software. It may contain grammatical, syntax or spelling errors. Electronically signed by: Klever Tinajero M.D. 06/25/2022 8:21 AM Venous Doppler Study 06/25/22 08:53 LEFT LOWER EXTREMITY VENOUS DOPPLER CLINICAL HISTORY: Left leg swelling. Evaluate for deep venous thrombus. COMPARISON STUDY: No previous studies for comparison. TECHNIQUE: Sonography of the deep venous system of the left lower extremity was performed. Compression and augmentation were evaluated. FINDINGS: The left common femoral, superficial femoral and popliteal veins were compressible. Augmentation was normal. Flow was shown within the deep calf vessels. Subcutaneous edema of the left leg is noted. IMPRESSION: No evidence of deep venous thrombus within the left lower extremity. ACT 112: Negative or not required by law. Electronically signed by: Toño Sanderson M.D. 06/25/2022 9:50 AM
[2022-06-26] MEDS: buPROPion XL 150 MG TABCR PO SCH (10:06)
[2022-06-26] MEDS: CITALOPRAM 40 MG TAB PO SCH (10:06)
[2022-06-26] MEDS: LISINOPRIL/HCTZ 20/12.5MG 1 TAB TAB PO SCH (10:06)
[2022-06-26] MEDS: amLODIPine BESYLATE 5 MG TAB PO SCH (10:06)
[2022-06-26] MEDS: DOCUSATE SODIUM 100 MG CAP PO SCH ×2 (10:06→21:18)
[2022-06-26] MEDS: SODIUM CHLORIDE 0.9% 1000ML 1,000 ML IV SCH (10:07)
[2022-06-26] MEDS: PANTOprazole 40 MG TAB PO SCH (10:07)
--- NOTE | 2022-06-26 14:25 | Progress Notes ---
DATE OF SERVICE: 06/26/2022. Overall improvement. Still with swelling and discomfort. He reported 2 episodes of chills and sweat s last evening. His highest measured temperature has been 37.6. White count has returned to normal. There are no crystals. Doppler ultrasound was negative for DVT. Blood cultures and left knee join t aspiration all no growth to date. The white blood cell count in the aspirated synovial fluid was 7 4,000 red cells, 53% polys, 542 WBCs. The erythema is much improved. There is still some tenderness at the very inferior aspect of the incision. No drainage or fluctuance. There is 1+ edema of the l eg and ankle. He is able to do a leg raise and stand upright. There is a small effusion within the left knee joint. Plan is to continue elevation, icing, self-directed physical therapy. Lovenox for DVT prophylaxis. Continue vancomycin. Await ID consult. I will be out of town over the weekend. Manuela Strauss will round on him tomorrow. Overall, improving and heading in the right direction. He reid s a postoperative cellulitis of the left knee. There is no evidence of joint infection. Job ID: [id number]
[2022-06-27] MEDS: ENOXAPARIN INJ 30 MG/0.3 ML SYR SQ SCH ×3 (00:35→23:55)
[2022-06-27] MEDS: oxyCODONE HCL IR 5 MG TAB (IMMEDIATE RELEASE) PO PRN ×5 (05:01→23:22)
[2022-06-27] MEDS ORDERED: VANCOMYCIN LEVEL SCH (05:30)
[2022-06-27] MEDS: SODIUM CHLORIDE 0.9% 1000ML 1,000 ML IV SCH (06:15)
[2022-06-27] MEDS: VANCOMYCIN HCL 1,000 MG in SODIUM CHLORIDE 0.9% 250 ML IV SCH (06:16)
[2022-06-27] MEDS: ACETAMINOPHEN 500 MG TAB PO SCH ×3 (06:22→23:21)
[2022-06-27] MEDS: amLODIPine BESYLATE 5 MG TAB PO SCH (08:53)
[2022-06-27] MEDS: CITALOPRAM 40 MG TAB PO SCH (08:53)
[2022-06-27] MEDS: buPROPion XL 150 MG TABCR PO SCH (08:53)
[2022-06-27] MEDS: LISINOPRIL/HCTZ 20/12.5MG 1 TAB TAB PO SCH (08:53)
[2022-06-27] MEDS: PANTOprazole 40 MG TAB PO SCH (08:53)
[2022-06-27] MEDS: DOCUSATE SODIUM 100 MG CAP PO SCH ×2 (08:56→19:41)
--- NOTE | 2022-06-27 10:12 | Pharmacy Report ---
Pharmacy PK ABX Note - Date of Service June 27, 2022 - Assessment and Plan Assessment 57 year old M receiving IV vancomycin for treatment of skin and soft tissue infection. Patient is post op left total knee arthroplasty 2.5 weeks ago, and presents with fevers, pain, erythema, and swelling of incision site. * Day #3 abx therapy. * Leukocytosis resolved. Afebrile x 48 hours. * Blood and knee cx with no growth to date. * ID consulted and awaiting their recommendations. Plan Vancomycin * Current regimen: 1000 mg IV every 12 hours * Random level obtained 06/27/22 resulted as 7.8 mcg/mL. Predicted AUC at steady state: 343 mg/L.hr indicating this dose is subtherapeutic. * Change to 1500 mg IV every 12 hours. Predicted AUC at steady state: 511 mg/L.hr. * Repeat random level ordered for: 06/29/22 Pharmacy will continue to follow and will adjust dose/frequency as necessary. Thank you. Pharmacy has transitioned to AUC monitoring for vancomycin. AUC/MICHAEL is the preferred PK/PD target and is associated with decreased risk of nephrotoxicity compared to traditional trough targets.
[2022-06-27 10:21] LABS: Creatinine Clr Calc Pharmacy 100.5 ml/min; Est GFR (African American) 92.2 ml/min; Est GFR (Non-African American) 79.5 ml/min
--- NOTE | 2022-06-27 16:06 | Orthopedic Progress Note ---
Date of Service June 27, 2022 Assessment & Plan (1) Postoperative infection of knee: Looks like he is mostly dealing with the cellulitis. He is currently on IV vancomycin. He can be weightbearing as tolerated. Is on Lovenox 30 mg twice a day for DVT prophylaxis. We are still awaiting infectious disease recommendations. Max Mascorro was seen and examined at bedside today. Overall he is doing okay. He is on the IV antibiotics. His knee is still pretty sore. He has been weightbearing on it. He has no new complaints.. Review of Systems All systems reviewed & are unremarkable except as noted in HPI & below. Physical Exam On physical examination of the left knee, there is some cellulitis on the distal aspect of the incision. I do not see any purulent discharge. The incision actually is pretty good otherwise. I do not see any clinical evidence of infection of the knee joint itself.. Results & Data Results & Data Laboratory Results . Diagnostic Findings . PG Care Time/CCT Total # of Minutes Spent Total Time Spent with Patient: Total time spent is greater than 50% in coordination of care (as documented) at patient's floor/unit and/or counseling patient: Coding Level of Care Code 97856 Post Operative Follow-Up Diagnoses Postoperative infection of knee T81.49XA; M00.9
[2022-06-27] MEDS: VANCOMYCIN HCL 1,500 MG in SODIUM CHLORIDE 0.9% 500 ML IV SCH (17:37)
[2022-06-28] MEDS: SODIUM CHLORIDE 0.9% 1000ML 1,000 ML IV SCH ×2 (02:47→22:07)
[2022-06-28] MEDS: VANCOMYCIN HCL 1,500 MG in SODIUM CHLORIDE 0.9% 500 ML IV SCH ×2 (06:38→17:57)
[2022-06-28] MEDS: ACETAMINOPHEN 500 MG TAB PO SCH ×3 (06:41→21:13)
[2022-06-28] MEDS: oxyCODONE HCL IR 5 MG TAB (IMMEDIATE RELEASE) PO PRN ×4 (06:41→20:54)
[2022-06-28 07:01] LABS: Creatinine Clr Calc Pharmacy 105.6 ml/min; Est GFR (African American) 97.8 ml/min; Est GFR (Non-African American) 84.4 ml/min
[2022-06-28] MEDS: buPROPion XL 150 MG TABCR PO SCH (08:18)
[2022-06-28] MEDS: PANTOprazole 40 MG TAB PO SCH (08:18)
[2022-06-28] MEDS: amLODIPine BESYLATE 5 MG TAB PO SCH (08:18)
[2022-06-28] MEDS: LISINOPRIL/HCTZ 20/12.5MG 1 TAB TAB PO SCH (08:18)
[2022-06-28] MEDS: DOCUSATE SODIUM 100 MG CAP PO SCH ×2 (08:18→20:54)
[2022-06-28] MEDS: CITALOPRAM 40 MG TAB PO SCH (08:18)
[2022-06-28] MEDS: ENOXAPARIN INJ 30 MG/0.3 ML SYR SQ SCH (12:47)
--- NOTE | 2022-06-28 18:29 | Progress Notes ---
DATE OF SERVICE: 06/28/2022. Improvement noted. No further chills or sweats. Knee pain is less. He has been doing therapy on hi s own. He is afebrile. His vital signs are stable. He has no new labs. His cultures of the blood and left knee joint aspiration are negative for growth to date. He continues to be on IV vancomycin and has Lovenox for DVT prophylaxis. Plan is to continue IV antibiotics and DVT prophylaxis. We leola jordan get PT to see him tomorrow. Await Infectious Diseases consultation in regards to further treatment . He has a postoperative superficial wound infection. There is not any evidence of an infected pros thetic joint. Job ID: [id number]
[2022-06-29] MEDS: ENOXAPARIN INJ 30 MG/0.3 ML SYR SQ SCH ×3 (00:06→23:26)
[2022-06-29] MEDS ORDERED: VANCOMYCIN LEVEL ONE (05:30)
[2022-06-29] MEDS: ACETAMINOPHEN 500 MG TAB PO SCH ×3 (05:54→23:26)
[2022-06-29] MEDS: VANCOMYCIN HCL 1,500 MG in SODIUM CHLORIDE 0.9% 500 ML IV SCH ×2 (05:54→17:59)
[2022-06-29] MEDS: oxyCODONE HCL IR 5 MG TAB (IMMEDIATE RELEASE) PO PRN ×4 (05:59→19:48)
[2022-06-29 06:49] LABS: Creatinine Clr Calc Pharmacy 108.8 ml/min; Est GFR (African American) 101.4 ml/min; Est GFR (Non-African American) 87.5 ml/min
[2022-06-29] MEDS: amLODIPine BESYLATE 5 MG TAB PO SCH (08:47)
[2022-06-29] MEDS: PANTOprazole 40 MG TAB PO SCH (08:47)
[2022-06-29] MEDS: LISINOPRIL/HCTZ 20/12.5MG 1 TAB TAB PO SCH (08:47)
[2022-06-29] MEDS: buPROPion XL 150 MG TABCR PO SCH (08:47)
[2022-06-29] MEDS: CITALOPRAM 40 MG TAB PO SCH (08:47)
[2022-06-29] MEDS: DOCUSATE SODIUM 100 MG CAP PO SCH ×2 (08:48→20:58)
--- NOTE | 2022-06-29 10:40 | Progress Notes ---
DATE OF SERVICE: 06/29/2022 Continues to improve. No fever. Erythema is diminished. The incision is nontender. There is a sma ll amount of fluid within the knee. He is able to do a leg lift and bend the knee from 0 to about 50 degrees. He appears to have full extension. There is 1+ distal edema. The plan is to continue the IV antibiotics and DVT prophylaxis. We will have physical therapy work with him on knee rehab. I a m told that the ID consult should be done today, and hopefully, we can facilitate their recommendatio ns and get him discharged as soon as possible. He has a superficial postoperative wound infection. There is no evidence of a deep periprosthetic joint infection. Job ID: [id number]
--- NOTE | 2022-06-29 14:55 | Pharmacy Report ---
Pharmacy PK ABX Note - Date of Service June 29, 2022 - Assessment and Plan Assessment 57 year old M receiving IV vancomycin for treatment of skin and soft tissue infection. Patient is post op left total knee arthroplasty 2.5 weeks ago, and presents with fevers, pain, erythema, and swelling of incision site. * Day #3 abx therapy. * Leukocytosis resolved. Afebrile x 48 hours. * Blood and knee cx with no growth to date. * ID consulted and awaiting their recommendations. Plan 06/29 * Level 11.9 mcg/mL, predicted AUC steady state is within target range at 443 mg/L.hr, will continue current dosing of 1500 mg q12H. Vancomycin * Current regimen: 1000 mg IV every 12 hours * Random level obtained 06/27/22 resulted as 7.8 mcg/mL. Predicted AUC at steady state: 343 mg/L.hr indicating this dose is subtherapeutic. * Change to 1500 mg IV every 12 hours. Predicted AUC at steady state: 511 mg/L.hr. * Repeat random level ordered for: 06/29/22 Pharmacy will continue to follow and will adjust dose/frequency as necessary. Thank you. Pharmacy has transitioned to AUC monitoring for vancomycin. AUC/MICHAEL is the preferred PK/PD target and is associated with decreased risk of nephrotoxicity compared to traditional trough targets.
[2022-06-30] MEDS: SODIUM CHLORIDE 0.9% 1000ML 1,000 ML IV SCH (05:44)
[2022-06-30] MEDS: VANCOMYCIN HCL 1,500 MG in SODIUM CHLORIDE 0.9% 500 ML IV SCH (06:01)
[2022-06-30] MEDS: ACETAMINOPHEN 500 MG TAB PO SCH ×2 (06:01→14:08)
[2022-06-30] MEDS: oxyCODONE HCL IR 5 MG TAB (IMMEDIATE RELEASE) PO PRN ×2 (06:06→12:55)
[2022-06-30 06:49] LABS: Creatinine Clr Calc Pharmacy 100.5 ml/min; Est GFR (African American) 92.2 ml/min; Est GFR (Non-African American) 79.5 ml/min
[2022-06-30] MEDS: buPROPion XL 150 MG TABCR PO SCH (08:58)
[2022-06-30] MEDS: LISINOPRIL/HCTZ 20/12.5MG 1 TAB TAB PO SCH (08:58)
[2022-06-30] MEDS: CITALOPRAM 40 MG TAB PO SCH (08:58)
[2022-06-30] MEDS: amLODIPine BESYLATE 5 MG TAB PO SCH (08:58)
[2022-06-30] MEDS: PANTOprazole 40 MG TAB PO SCH (08:58)
[2022-06-30] MEDS: DOCUSATE SODIUM 100 MG CAP PO SCH (08:59)
--- NOTE | 2022-06-30 10:28 | Orthopedic Progress Note ---
Date of Service June 30, 2022 Assessment & Plan (1) Postoperative infection of knee: (2) Status post total left knee replacement: Plan ID consultation reviewed. He has a postoperative superficial wound infection. There is no evidence of a deep periprosthetic infection. He is afebrile and cultures are no growth to date blood and wound. I agree with discharge home. Discontinue Lovenox. Switch to aspirin. Start therapy this week if possible. Stop vancomycin and begin doxycycline 100 mg p.o. twice daily and Augmentin 875 p.o. twice daily. Follow-up Wednesday. If anything worsens in terms of pain swelling fevers chills please call the office or go to the emergency room. Admission and Anticipated Discharge Date Admission Date: June 25, 2022 Subjective Feeling much better. No problems reported. No fevers or chills. Physical Exam Physical Exam: There is a trace to small left knee effusion. There is still a little bit of faint redness of the distal incision but he has no tenderness or drainage. 1+ leg edema. He is able to do a straight leg raise and has knee motion from about 3 degrees short of full extension to about 80 or 85 degrees flexion. Results & Data ([facility]) Vital Signs (Past 12 Hours) Vital Signs Temp Pulse Resp BP Pulse Ox O2 Del Method 06/30/22 07:15 36.4 C L 90 14 153/94 H 97 Room Air
[2022-06-30] MEDS: ENOXAPARIN INJ 30 MG/0.3 ML SYR SQ SCH (12:55)
--- NOTE | 2022-07-01 09:41 | Discharge Summary ---
Date of Service July 01, 2022 Discharge Data Consultations 06/25/22 06:44 Consult Orthopedic Surgery Stat 06/25/22 09:03 ED Decision to Admit Stat 06/25/22 13:16 Consult Infectious Diseases Routine Hospital Course (1) Postoperative infection of knee: Patient presented to the [facility] Emergency Room on 06/26/22 with complaints of increasing left knee pain, swelling, redness and warmth. Also complaining of fevers and chills and a temperature up to 101. He presented directly to the emergency room. Dr. Orourke was notified due to his recent history of left total knee arthroplasty on 06/09/22. He had pain with range of motion and palpation. He was admitted to Dr. Orourke's service for observation and treatment of suspected cellulitis left leg. Intra-articular aspiration was performed in the ED and bloody fluid was removed from his knee, this was sent for gram stain, culture, cell count and crystal analysis, which are all negative for intra-articular infection. He was placed on IV vancomycin and and Infectious Disease consult was placed. Blood cultures also were negative. He was given a regular diet during his inpatient stay. He was allowed out of bed, weight bearing left lower extremity. PT/OT were consulted. He did his own physical therapy while in the hospital for his left knee. Each day his pain and erythema improved. His home medications were continued. He was continued on Lovenox 30 mg twice daily for DVT prophylaxis. He was allowed out of bed as tolerated with the assistance of a walker or cane. BRANDON stockings were advised for edema and DVT prophylaxis. His vital signs were stable. He remained afebrile. Infectious disease evaluated him on Wednesday, June 29, 2022. They recommended due to this being an extra-articular superficial skin infection versus intra-articular he recommended Augmentin 875 mg p.o. twice daily and doxycycline 100 mg p.o. twice daily x10 days. We also refilled his oxycodone and tramadol for discharge home. Prescriptions were sent to his pharmacy. He was discharged to his home in stable condition on June 30, 2022. He will follow-up as scheduled on July 03, 2022. He was recommended to continue outpatient for physical therapy. Discharge instructions were provided. All questions were answered.
== END 2022-06-30 17:09 | disposition home health service (06) | DRG 863 ==
LOC: ED 03:44 → EDINP 09:06 → 3E 11:39

== ENCOUNTER 2022-07-06 17:31 | Inpatient (IN) ==
[2022-07-06] MEDS ORDERED: cefTRIAXone SODIUM 2,000 MG/70 ML BAG IV STA (17:43)
[2022-07-06] MEDS ORDERED: SODIUM CHLORIDE 0.9% 1000ML 1,000 ML IV STA (17:43)
[2022-07-06] MEDS ORDERED: VANCOMYCIN CONSULT ACTIVE PRN (17:43)
[2022-07-06] MEDS ORDERED: VANCOMYCIN HCL 2,750 MG in SODIUM CHLORIDE 0.9% 500 ML IV STA (17:43)
[2022-07-06] MEDS ORDERED: diphenhydrAMINE 50 MG/ML VIAL IV PRN (19:42)
[2022-07-06] MEDS ORDERED: ACETAMINOPHEN 325 MG TAB PO PRN (19:42)
[2022-07-06] MEDS ORDERED: ALUMINUM/MAGNESIUM SUSP 30 ML UDC PO PRN (19:42)
[2022-07-06] MEDS ORDERED: SODIUM CHLORIDE 0.9% 1000ML 1,000 ML IV SCH (19:45)
[2022-07-06 19:46] LABS: Basophils # (auto) 0.09 K/uL (0-0.2); Basophils % (auto) 0.8 %; Eosinophils # (auto) 0.52 K/uL (0-0.50); Eosinophils % (auto) 4.4 %; Hematocrit (blood only) 42.3 % (40.1-51.0); Hemoglobin 13.7 g/dl (14.0-18.0); Immature Granulocytes # (auto) 0.05 K/uL (0.00-0.02); Immature Granulocytes % (auto) 0.4 %; Lymphocytes # (auto) 3.77 K/uL (1.2-3.4); Lymphocytes % (auto) 32.2 %; Mean Corpuscular Hemoglobin 30.4 pg (25.0-34.0); Mean Corpuscular Hgb Conc 32.4 g/dL (32.0-36.0); Mean Platelet Volume 8.7 fL (9.4-12.4); Monocytes # (auto) 0.96 K/uL (0.24-0.82); Monocytes % (auto) 8.2 %; Neutrophils # (auto) 6.31 K/uL (1.4-6.5); Platelet Count 328 K/uL (130-400); RDW Coefficient of Variation 12.9 % (11.5-14.5); RDW Standard Deviation 43.8 fL (36.4-46.3)
--- NOTE | 2022-07-06 19:48 | Emergency Department Note ---
Impression & Plan Postoperative infection of knee, Status post total left knee replacement ED Provider Note NAME: DOREEN ROSE AGE: 57 SEX: M : 1965 ARRIVES VIA: Walk-In INFORMANT: Patient, ED PROVIDER(S): Honorio Hubbard DO CHIEF COMPLAINT: Postoperative infection HPI: The patient is a 57-year-old male who presented to the emergency department for an evaluation of postoperative infection. The patient has a recent left knee replacement. The knee was replaced approximately 4 to 5 weeks ago. Initially he did have a superficial infection. He was readmitted to the hospital at that time. He was treated with IV antibiotics and then sent home on oral antibiotics. He was compliant with all of his medication regimen. He was seen in follow-up today because he had reoccurrence of some drainage and redness from the knee. This reoccurred again this past Wednesday. When he was seen in the office there was concern the patient may have a deeper infection he was sent over to emergency department for further evaluation and for likely admission. The patient was sent by orthopedics. I did receive a phone call from orthopedics recommending that we start the patient on vancomycin. ROS: See above HPI for pertinent positives & negatives. A total of 10 systems reviewed and were otherwise negative. PAST MEDICAL HISTORY: See Below PAST SURGICAL HISTORY: See Below FAMILY HISTORY: See Below SOCIAL HISTORY: See Below HOME MEDICATIONS: See Below ALLERGIES: See Below VITALS: See Below PHYSICAL EXAMINATION: GENERAL: Patient is awake alert in no acute distress patient is resting comfortably and showing no signs of anxiety EYES: The conjunctivae are clear. The pupils are round and reactive. EARS, NOSE, MOUTH AND THROAT: The nose is without any evidence of any deformity. Mucous membranes are moist. Tongue is midline. NECK: The neck is nontender and supple. RESPIRATORY: Normal respiratory effort is noted there is no evidence of wheezing rhonchi or rales CARDIOVASCULAR: Regular rate and rhythm noted there no murmurs rubs or gallops normal S1 normal S2. GASTROINTESTINAL: The abdomen is soft. Abdomen is nontender. MUSCULOSKELETAL/EXTREMITIES: There was pain with range of motion of the left k nee. SKIN: There was swelling and erythema noted over the left knee postoperative site. The inferior portion was opened with a small amount of purulent drainage noted. NEUROLOGIC: Patient is awake alert and oriented x3 MEDICAL DECISION MAKING: The patient is a 57-year-old male who presented to the emergency department for an evaluation of left knee drainage. The patient recently had a total knee replacement. The patient was seen by his orthopedic physician and sent to the emergency department for further evaluation as well as admission for an in fection in the knee. I did receive some recommendations from the orthopedic group prior to the patient arriving to the emergency department. Laboratory studies were ordered and IV antibiotics were ordered from the waiting room including IV vancomycin. The patient was evaluated in the emergency department by the orthopedic team. He was felt to be a good candidate for inpatient management. Triage Nursing notes reviewed. Prior medical records reviewed Vital Signs: reviewed and remarkable for no significant abnormalities Differential diagnosis: Etiologies such as cellulitis, abscess, MRSA infection, dermatitis, drug eruption, necrotizing fasciitis, DVT as well as others were entertained. ER treatment provided: See below Diagnostics interpreted by me: ECG: none Laboratory studies: As stated above and show below. Imaging studies: See below Consultation(s): Discussed this case with Geoffrey Akbar. Past Med/Surg History Medical History Anxiety Back pain Depression Esophageal reflux intermittent, stable per pt History of COVID-05 September 2021 -- treated with the antibody treatment--full recovery Hypertension controlled, stable per pt Psoriasis Surgical History Biceps tendon rupture right with repair History of colonoscopy History of deviated nasal septum with repair History of esophagogastroduodenoscopy (EGD) History of tooth extraction Hx of elbow surgery right S/P left knee arthroscopy 10/24/20: LMA#5. 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: No Beliefs That Will Affect Care: None marital status: Current Living Situation: Spouse Feels Safe at Home: Yes Safety Concerns: Feels Safe At This Time Assistive Devices: Cane Allergies Allergies Allergy/AdvReac Type Severity Reaction Status Date / Time iodine Allergy Unknown N/V, Verified 06/25/22 08:51 SWELLING shellfish derived Allergy Unknown N/V Verified 06/25/22 08:51 SWELLING Home Meds Home Medications Medication Instructions Recorded Confirmed amlodipine 5 mg tablet 5 mg PO QAM 10/14/20 06/25/22 bupropion HCl 150 mg 24 hr tablet, 150 mg PO QAM 10/14/20 06/25/22 extended release citalopram 20 mg tablet 40 mg PO QAM 10/14/20 06/25/22 lisinopril 20 1 tab PO QAM 10/14/20 06/25/22 mg-hydrochlorothiazide 12.5 mg tablet multivitamin 1 tab PO QAM 10/14/20 06/25/22 Previous Rx's Medication Instructions Recorded acetaminophen 500 mg tablet 1,000 mg PO Q8 #30 tabs 06/30/22 (Tylenol Extra Strength) amoxicillin 875 mg-potassium 1 tab PO BID 10 days #20 tabs 06/30/22 clavulanate 125 mg tablet aspirin 325 mg tablet 325 mg PO BID #60 tabs 06/30/22 doxycycline hyclate 100 mg tablet 100 mg PO BID 10 days #20 tabs 06/30/22 oxycodone 5 mg tablet 5 - 10 mg PO Q4H PRN pain #30 tabs 06/30/22 tramadol 50 mg tablet 50 - 100 mg PO Q6H PRN pain #30 06/30/22 tabs Results & Data (ED) Vital Signs Vital Signs - 24 hr 07/06/22 17:59 Temperature 37.1 C Temperature Source Oral Pulse Rate 98 H Respiratory Rate 18 Blood Pressure 163/94 H Blood Pressure Mean 117 Pulse Oximetry 100 Oxygen Delivery Method Room Air Sepsis Recent Fever Within 48 Hours No Sepsis New/Unexplained Change in Mental Status No Sepsis Action Taken by Nursing No Action Required Home Medications Current Medication List: was personally reviewed by me Laboratory Data Attestation: I reviewed the patient's lab results. Result diagrams: 07/06/22 19:25 07/06/22 20:39 Lab Results 07/06/22 07/06/22 07/06/22 Range/Units 19:16 19:25 19:25 WBC (4.8-10.8) K/ul RBC (4.63-6.08) M/uL Hgb (14.0-18.0) g/dl Hct (40.1-51.0) % MCV (80.0-100.0) fL MCH (25.0-34.0) pg MCHC (32.0-36.0) g/dL RDW Std Deviation (36.4-46.3) fL RDW Coeff of Michelle (11.5-14.5) % Plt Count (130-400) K/uL MPV (9.4-12.4) fL Immature Gran % (Auto) % Neut % (Auto) % Lymph % (Auto) % [place] % (Auto) % Eos % (Auto) % Baso % (Auto) % Neut # (Auto) (1.4-6.5) K/uL Lymph # (Auto) (1.2-3.4) K/uL [place] # (Auto) (0.24-0.82) K/uL Eos # (Auto) (0-0.50) K/uL Baso # (Auto) (0-0.2) K/uL Immature Gran # (Auto) (0.00-0.02) K/uL ESR (0-20) mm/hr Sodium 136 (136-145) mmol/L Potassium TNP Chloride 101 (98-107) mmol/L Carbon Dioxide 27 (21-32) mmol/L Anion Gap 8 (3-11) BUN 20 (6-23) mg/dl Creatinine 1.23 (0.6-1.4) mg/dl Est Cr Clr Drug Dosing 86.1 ml/min Est GFR ( Amer) 76.1 ml/min Est GFR (Non-Af Amer) 65.7 ml/min BUN/Creatinine Ratio 16.3 (10-20) Glucose 74 (70-99(Fasting)) mg/dl Calcium 9.8 (8.5-10.1) mg/dl Total Bilirubin 0.4 (0.2-1.0) mg/dl AST TNP ALT 15 (7-52) U/L Alkaline Phosphatase 59 (34-104) U/L C-Reactive Protein 0.60 H (0-0.5) mg/dl Total Protein 7.9 (6.0-8.3) gm/dl Albumin 4.3 (3.4-5.0) gm/dl Globulin 3.6 (2.5-4.0) gm/dl Albumin/Globulin Ratio 1.2 (0.9-2) Procalcitonin Cancelled SARS-CoV-2, RNA, NAAT NEGATIVE (NEGATIVE) 07/06/22 07/06/22 Range/Units 19:25 19:25 WBC 11.70 H (4.8-10.8) K/ul RBC 4.50 L (4.63-6.08) M/uL Hgb 13.7 L (14.0-18.0) g/dl Hct 42.3 (40.1-51.0) % MCV 94.0 (80.0-100.0) fL MCH 30.4 (25.0-34.0) pg MCHC 32.4 (32.0-36.0) g/dL RDW Std Deviation 43.8 (36.4-46.3) fL RDW Coeff of Michelle 12.9 (11.5-14.5) % Plt Count 328 (130-400) K/uL MPV 8.7 L (9.4-12.4) fL Immature Gran % (Auto) 0.4 % Neut % (Auto) 54.0 % Lymph % (Auto) 32.2 % [place] % (Auto) 8.2 % Eos % (Auto) 4.4 % Baso % (Auto) 0.8 % Neut # (Auto) 6.31 (1.4-6.5) K/uL Lymph # (Auto) 3.77 H (1.2-3.4) K/uL [place] # (Auto) 0.96 H (0.24-0.82) K/uL Eos # (Auto) 0.52 H (0-0.50) K/uL Baso # (Auto) 0.09 (0-0.2) K/uL Immature Gran # (Auto) 0.05 H (0.00-0.02) K/uL ESR 53 H (0-20) mm/hr Sodium (136-145) mmol/L Potassium Chloride (98-107) mmol/L Carbon Dioxide (21-32) mmol/L Anion Gap (3-11) BUN (6-23) mg/dl Creatinine (0.6-1.4) mg/dl Est Cr Clr Drug Dosing ml/min Est GFR ( Amer) ml/min Est GFR (Non-Af Amer) ml/min BUN/Creatinine Ratio (10-20) Glucose (70-99(Fasting)) mg/dl Calcium (8.5-10.1) mg/dl Total Bilirubin (0.2-1.0) mg/dl AST ALT (7-52) U/L Alkaline Phosphatase (34-104) U/L C-Reactive Protein (0-0.5) mg/dl Total Protein (6.0-8.3) gm/dl Albumin (3.4-5.0) gm/dl Globulin (2.5-4.0) gm/dl Albumin/Globulin Ratio (0.9-2) Procalcitonin SARS-CoV-2, RNA, NAAT (NEGATIVE) Administered Medications Acetaminophen (Acetaminophen 325 Mg Tab) 650 mg PO Q6H PRN PRN Reason: Fever or Headache Stop: 08/05/22 19:41 Last Admin: 07/06/22 21:14 Dose: 650 mg Documented By: TU Amlodipine Besylate (Amlodipine Besylate 5 Mg Tab) [facility] [place] Stop: 08/06/22 08:59 Last Admin: 07/07/22 08:10 Dose: 5 mg Documented By: SKIP Bupropion HCl (Bupropion Xl 150 Mg Tabcr) 150 [facility] [place] Stop: 08/06/22 08:59 Last Admin: 07/07/22 07:25 Dose: 150 mg Documented By: SKIP Oxycodone HCl (Oxycodone Hcl Ir 5 Mg Tab (Immediate Release)) 5 mg PO Q6H PRN PRN Reason: Pain Stop: 07/20/22 19:46 Last Admin: 07/07/22 07:22 Dose: 5 mg Documented By: Admin: 07/06/22 21:12 Dose: 5 mg Documented By: TU Discontinued Medications Ceftriaxone Sodium (Rocephin) 2,000 mg in 70 mls @ 140 mls/hr IV NOW STA Stop: 07/06/22 18:12 Last Infusion: 07/06/22 20:30 Dose: 0 mls/hr Documented By: Admin: 07/06/22 20:08 Dose: 140 mls/hr Documented By: SS Vancomycin HCl 2,750 mg/ (Sodium Chloride) 555 mls @ 200 mls/hr IV NOW STA Stop: 07/06/22 20:12 Last Infusion: 07/07/22 00:15 Dose: 0 mls/hr Documented By: Admin: 07/06/22 21:14 Dose: 200 mls/hr Documented By: SS Sodium Chloride (Nss 1000ml) 1,000 mls @ 999 mls/hr IV .Q1H1M STA Stop: 07/06/22 18:43 Last Infusion: 07/06/22 21:20 Dose: 0 mls/hr Documented By: Admin: 07/06/22 20:09 Dose: 999 mls/hr Documented By: SS Discharge Plan Visit Data Chief Complaint: Infection Stated Complaint: INFECTION IN KNEE ED Provider: Honorio Hubbard Discharge Problem: Postoperative infection of knee, Status post total left knee replacement Patient Disposition: Admitted As Inpatient Discharge Instructions Interventions: ED Discharge Assessment Last Done: 07/06/22 22:19
--- NOTE | 2022-07-06 19:55 | History & Physical Report ---
Date of Service July 06, 2022 Assessment & Plan (1) Postoperative infection of knee: Plan: Patient will be admitted to the orthopedic service. Anticipate taking him to the operating room tomorrow for scar revision, possible irrigation and debridement, and possible polyethylene liner exchange. Patient will be allowed to eat this evening, but will be n.p.o. after midnight. He is currently afebrile. Preoperative lab work has been ordered. EKG and chest x-ray have also been ordered. COVID test is pending. Daily medications have been ordered. He did receive vancomycin and Rocephin here in the ED. Ancef 3 g has been ordered for preop tomorrow before the OR. He may be up ad tonya. this evening and weightbearing as tolerated. Dr. Orourke is aware of the patient's current status. History of Present Illness Chief Complaint: Left knee drainage Primary Care Provider: Osiel Bennett DO This 57-year-old male is seen today in the ED. He previously underwent left total knee arthroplasty by Dr. Orourke on 06/09/2022. He was discharged to home on 06/11/2022 after an uneventful surgical admission. Patient returned to the ED on 06/25/2022 for increasing pain at the bottom of his incision, fever, chills, sweats, and redness. He was thought to have cellulitis and IV antibiotics were started. Knee aspiration at that time did not grow any bacteria. Infectious disease was consulted and he was placed on doxycycline twice daily and Augmentin twice daily. Patient was discharged to home on 06/30/2022. On 07/04 patient noticed a small pinhole at the distal portion of his knee scar that began draining. He states it has continued to drain a small amount of serous fluid since then. Patient was seen in the office today and there was concern for possible communication with the joint. Because of this, he was sent to the ED for admission. Patient denies any fevers, sweats, or chills. He denies any increase in knee pain. He has been ambulatory using his cane. No nausea or vomiting. Due to current hospital restrictions and bed availability, direct admission was not available. Allergies Allergy/AdvReac Type Severity Reaction Status Date / Time iodine Allergy Unknown N/V, Verified 06/25/22 08:51 SWELLING shellfish derived Allergy Unknown N/V Verified 06/25/22 08:51 SWELLING Home Medications Medication Instructions Recorded Confirmed Type amlodipine 5 mg tablet 5 mg PO QAM 10/14/20 06/25/22 History bupropion HCl 150 mg 24 hr tablet, 150 mg PO QAM 10/14/20 06/25/22 History extended release citalopram 20 mg tablet 40 mg PO QAM 10/14/20 06/25/22 History lisinopril 20 1 tab PO QAM 10/14/20 06/25/22 History mg-hydrochlorothiazide 12.5 mg tablet multivitamin 1 tab PO QAM 10/14/20 06/25/22 History acetaminophen 500 mg tablet 1,000 mg PO Q8 #30 tabs 06/30/22 Rx (Tylenol Extra Strength) amoxicillin 875 mg-potassium 1 tab PO BID 10 days #20 tabs 06/30/22 Rx clavulanate 125 mg tablet aspirin 325 mg tablet 325 mg PO BID #60 tabs 06/30/22 Rx doxycycline hyclate 100 mg tablet 100 mg PO BID 10 days #20 tabs 06/30/22 Rx oxycodone 5 mg tablet 5 - 10 mg PO Q4H PRN pain #30 tabs 06/30/22 Rx tramadol 50 mg tablet 50 - 100 mg PO Q6H PRN pain #30 06/30/22 Rx tabs Past Med/Surg History Medical History Anxiety Back pain Depression Esophageal reflux intermittent, stable per pt History of COVID-05 September 2021 -- treated with the antibody treatment--full recovery Hypertension controlled, stable per pt Psoriasis Surgical History Biceps tendon rupture right with repair History of colonoscopy History of deviated nasal septum with repair History of esophagogastroduodenoscopy (EGD) History of tooth extraction Hx of elbow surgery right S/P left knee arthroscopy 10/24/20: LMA#5. Family History Mother Diabetes Other No family history of adverse response to anesthesia Social History Smoking Status: Never smoker Tobacco Type: Smokeless Tobacco (Dip or Chew) Second Hand Exposure: No; Hx Alcohol Use: No Hx Substance Use: No Preferred Language: Japanese Communication Ability: Effective Mlt Required: No Beliefs That Will Affect Care: None marital status: Current Living Situation: Spouse Feels Safe at Home: Yes Assistive Devices: Walker Review of Systems Review of Systems: All systems reviewed & are unremarkable except as noted in HPI & below A total of 10 systems were reviewed. Physical Exam Physical Exam: General: Well-developed, well-nourished, middle-aged white m marquez, in no acute distress. Sitting on the bed. Alert and oriented. Skin: Warm dry with good turgor. No rashes. Healing surgical incision present on the left anterior knee. There is a punctate opening present distally that is weeping serous type fluid. No purulence is expressible. No erythema or warmth. HEENT: Normocephalic atraumatic. Eyes PERRLA, EOMI. No conjunctiva or scleral injection. Nares and oropharynx exams deferred due to COVID precautions. Heart: Heart RRR. No MGR. Peripheral pulses are 2+. Lungs: Lungs are clear to auscultation. No crackles rhonchi or wheezing. Good air movement. The patient is able to take a deep breath. Abdomen: Abdomen was inspected, auscultated, and palpated. Obese. Bowel sounds present x 4. Soft, nontender to palpation. No hepato-splenomegaly. No masses noted. No rebound. Musculoskeletal: Left knee evaluation reveals no appreciable intra-articular effusion. No redness or warmth. He has full terminal extension. Flexion to greater than 90 degrees. Strength is 5/5 with fairly good quad tone. There is no discomfort with palpation around the knee itself. He has no pain with motion. He does describe some stiffness, but this is consistent with his baseline after attending PT. Stable collateral ligaments. Neurologic: Gross sensation is intact across both lower extremities by soft touch. Peripheral pulses are 2+. Results & Data Results & Data ([facility] [place]) Vital Signs (Past 12 Hours) Vital Signs Temp Pulse Resp BP Pulse Ox O2 Del Method 07/06/22 17:59 37.1 C 98 H 18 163/94 H 100 Room Air Laboratory Results CBC obtained today shows a white count of 11.7. H&H of 13.7 and 42.3. Platelets normal at 328,000. Sed rate is elevated at 53. COVID test, procalcitonin, and chemistry panel are pending. Code Status & VTE Plan VTE Prophylaxis Plan VTE Prophylaxis will be ordered: Yes
[2022-07-06 20:20] LABS: Alanine Aminotransferase 15 U/L (7-52); Albumin Globulin Ratio 1.2 (0.9-2); Albumin Level 4.3 gm/dl (3.4-5.0); Alkaline Phosphatase 59 U/L (34-104); Anion Gap 8 (3-11); BUN Creatinine Ratio 16.3 (10-20); Bilirubin,Total 0.4 mg/dl (0.2-1.0); Blood Urea Nitrogen 20 mg/dl (6-23); Calcium 9.8 mg/dl (8.5-10.1); Carbon Dioxide 27 mmol/L (21-32); Chloride 101 mmol/L (98-107); Creatinine Clr Calc Pharmacy 86.1 ml/min; Est GFR (African American) 76.1 ml/min; Est GFR (Non-African American) 65.7 ml/min; Globulin 3.6 gm/dl (2.5-4.0); Glucose 74 mg/dl (70-99(Fasting)); Sodium 136 mmol/L (136-145); Total Protein 7.9 gm/dl (6.0-8.3)
[2022-07-06 21:12] LABS: Potassium 3.5 mmol/L (3.5-5.1)
[2022-07-06] MEDS: oxyCODONE HCL IR 5 MG TAB (IMMEDIATE RELEASE) PO PRN (21:12)
[2022-07-07] MEDS ORDERED: ROPIVACAINE 0.5% HCL/PF 150 MG, BUPIVACAINE 0.75% MPF 20 ML, EPINEPHrine 0.15 MG, Ketor... INFIL SCH (06:00)
[2022-07-07] MEDS ORDERED: TRANEXAMIC ACID / 0.7% NACL 1,000 MG/100 ML BAG IV SCH (06:00)
[2022-07-07] MEDS: oxyCODONE HCL IR 5 MG TAB (IMMEDIATE RELEASE) PO PRN ×3 (07:22→22:45)
[2022-07-07] MEDS: buPROPion XL 150 MG TABCR PO SCH (07:25)
[2022-07-07] MEDS: amLODIPine BESYLATE 5 MG TAB PO SCH (08:10)
--- NOTE | 2022-07-07 09:08 | Orthopedic Progress Note ---
Date of Service July 07, 2022 Assessment & Plan (1) Postoperative infection of knee: Plan: He will be taken to the OR for incision and drainage with possible polyethylene exchange today with Dr. Orourke. Pt has been NPO since midnight He received antibiotics and will receive 3 grams of Ancef director of transportation to OR He will be followed closely post operatively Will consult infectious disease, order placed. Present on Admission?: Yes (2) Status post total left knee replacement: Admission and Anticipated Discharge Date Admission Date: July 06, 2022 Subjective Pt is seen bedside this am. He has the history of a left TKA by Dr. Orourke on 06/09/2022. He has a suspected post operative infection of the left knee. He states he has mild pain in the knee that is 2/10. He states he started to have drainage from the inferior aspect of the incision on Wednesday that was yellow. He states he was still taking oral antibiotics at that time. He denies any redness over the knee. He denies any fever, chills, night sweats, CP, SOB, nausea, or vomiting. He denies having anything to eat or drink since midnight. He has received IV antibiotics, Rocephin and vancomycin. Review of Systems Review of Systems: see HPI Physical Exam Physical Exam: General: Pt is alert and oriented x3 no acute distress. in good spirits. Musculoskeletal: Left LE has mild edema, warm to touch, neg for erythema. Inferior incision has dressing over and is dry, neg for erythema or drainage. Knee ROM is limited 0-45 degrees flexion. calf is soft and nontender, DP 2+ LLE is NVI Results & Data ([facility]) Vital Signs (Past 12 Hours) Vital Signs Temp Pulse Pulse Resp BP BP Pulse Ox 07/07/22 07:52 37.1 C 95 H 16 125/75 98 07/06/22 22:55 07/06/22 22:55 36.7 C 81 20 123/75 94 07/06/22 22:19 88 20 157/85 H 94 O2 Del Method 07/07/22 07:52 Room Air 07/06/22 22:55 Room Air 07/06/22 22:55 Room Air 07/06/22 22:19 Room Air
[2022-07-07] MEDS ORDERED: DEXAMETHASONE SOD INJ 4 MG/ML VIAL ONE ×2 (11:44→14:07)
[2022-07-07] MEDS ORDERED: LIDOCAINE 2% 2 ML VIAL/AMP(20MG/ML) INFIL ONE (11:44)
[2022-07-07] MEDS ORDERED: PROPOFOL IV EMULSION 10 MG/ML 20 ML VIAL IV ONE ×2 (11:44→14:50)
[2022-07-07] MEDS ORDERED: ROCURONIUM BROMIDE 10 MG/ML 5 ML VIAL IV ONE (11:44)
[2022-07-07] MEDS ORDERED: ONDANSETRON INJ 2 MG/ML 2 ML VIAL ONE (11:44)
[2022-07-07] MEDS ORDERED: fentaNYL citrate 100 MCG/2 ML VIAL ONE (11:44)
[2022-07-07] MEDS ORDERED: MIDAZOLAM HCL 1 MG/ML 2ML VIAL ONE (11:45)
[2022-07-07] MEDS ORDERED: ATROPINE SULFATE 0.1 MG/ML 10ML SYR IV PRN (11:46)
[2022-07-07] MEDS ORDERED: ePHEDrine sulfate 50 MG/ML AMP IV PRN (11:46)
[2022-07-07] MEDS ORDERED: ONDANSETRON INJ 2 MG/ML 2 ML VIAL IV PRN (11:46)
--- NOTE | 2022-07-07 11:46 | Anesthesiology Consultation ---
Date of Service July 07, 2022 Assessment & Plan ASA ASA3 Proposed Anesthesia Anesthesia Type: General Risk / Benefits Reviewed With: PT / POA / Parent / Guardian, Accepts Plan and Informed Consent Obtained History Surgery Operation Date: 07/07/22 08:10 Proposed Procedures p Left Knee Wound Revision, Possible Incision and Drainage - Elver Orourke MD s Possible Poly Liner Exchange - Elver Orourke MD Height/Weight Height: 5 ft 8 in Weight: 121.6 kg Allergies Allergy/AdvReac Type Severity Reaction Status Date / Time iodine Allergy Unknown N/V, Verified 06/25/22 08:51 SWELLING shellfish derived Allergy Unknown N/V Verified 06/25/22 08:51 SWELLING Medications Home Medications Medication Instructions Recorded Confirmed Last Taken amlodipine 5 mg tablet 5 mg PO QAM 10/14/20 06/25/22 06/24/22 bupropion HCl 150 mg 24 hr tablet, 150 mg PO QAM 10/14/20 06/25/22 06/24/22 extended release citalopram 20 mg tablet 40 mg PO QAM 10/14/20 06/25/22 06/24/22 lisinopril 20 1 tab PO QAM 10/14/20 06/25/22 06/24/22 mg-hydrochlorothiazide 12.5 mg tablet multivitamin 1 tab PO QAM 10/14/20 06/25/22 06/24/22 acetaminophen 500 mg tablet 1,000 mg PO Q8 #30 tabs 06/30/22 Unknown (Tylenol Extra Strength) amoxicillin 875 mg-potassium 1 tab PO BID 10 days #20 tabs 06/30/22 Unknown clavulanate 125 mg tablet aspirin 325 mg tablet 325 mg PO BID #60 tabs 06/30/22 Unknown doxycycline hyclate 100 mg tablet 100 mg PO BID 10 days #20 tabs 06/30/22 Unknown oxycodone 5 mg tablet 5 - 10 mg PO Q4H PRN pain #30 tabs 06/30/22 Unknown tramadol 50 mg tablet 50 - 100 mg PO Q6H PRN pain #30 06/30/22 Unknown tabs Active Medications Generic Name Dose Route Start Last Admin Trade Name Freq PRN Reason Stop Dose Admin Acetaminophen 650 mg 07/06/22 19:42 07/06/22 21:14 Acetaminophen 325 Mg Tab PO 08/05/22 19:41 650 mg Q6H PRN Administration Fever or Headache Amlodipine Besylate 5 mg 07/07/22 09:00 07/07/22 08:10 Amlodipine Besylate 5 Mg Tab PO 08/06/22 08:59 5 mg QAM ALVERTO Administration Bupropion HCl 150 mg 07/07/22 09:00 07/07/22 07:25 Bupropion Xl 150 Mg Tabcr PO 08/06/22 08:59 150 mg QAM ALVERTO Administration Sodium Chloride 1,000 mls @ 0 mls/hr 07/06/22 19:45 07/07/22 11:27 Nss 1000ml IV 08/05/22 19:44 15 mls/hr .Q0M ALVERTO Administration KVO Oxycodone HCl 5 mg 07/06/22 19:47 07/07/22 07:22 Oxycodone Hcl Ir 5 Mg Tab (Immediate Release) PO 07/20/22 19:46 5 mg Q6H PRN Administration Pain NPO Date Last Intake of Fluids: 07/07/22 Time Last Intake of Fluids: 09:00 Date Last Intake of Solids: 07/06/22 Time Last Intake of Solids: 20:00 Past Medical History Medical History Anxiety Back pain Depression Esophageal reflux intermittent, stable per pt History of COVID-05 September 2021 -- treated with the antibody treatment--full recovery Hypertension controlled, stable per pt Psoriasis Exercise / Class Metabolic Activity II 4-5 Yardwork/Stairs/Walk up hill Past Family History Family History Mother Diabetes Other No family history of adverse response to anesthesia Past Surgical History Surgical History Biceps tendon rupture right with repair History of colonoscopy History of deviated nasal septum with repair History of esophagogastroduodenoscopy (EGD) History of tooth extraction Hx of elbow surgery right S/P left knee arthroscopy 10/24/20: LMA#5. Past Anesthesia History No Hx of Anesthesia Complications and No Family Hx of Anesthesia Complications History of PONV No Hx of PONV and No Hx of Motion Sickness Social History Smoking Status: Former smoker tobacco type: cigarettes Smoking End Date: 2009 Hx Alcohol Use: Yes Alcohol type: beer alcohol intake frequency: holidays/special occasions only Hx Substance Use: No substance use type: does not use Review of Systems denies fever/cough/ colds/ chest pain/ SOB/ REIKA denies ERIKA Physical Exam Vital Signs Last Vital Signs Temp 36.9 C 07/07/22 11:21 Pulse 94 H 07/07/22 11:21 Resp 20 07/07/22 11:21 BP 145/84 H 07/07/22 11:21 Pulse Ox 97 07/07/22 11:21 O2 Del Method 07/07/22 11:21 ENMT Mouth: no TMJ abnormality and no dentition abnormality Thyromental Distance: > or= 3.5 Finger Breadths Mallampati Class: II Neck neck extension not limited Respiratory normal respiratory effort; no respiratory distress Auscultation: lungs clear to auscultation bilaterally Cardiovascular Rate/Rhythm: regular rate and regular rhythm Neurologic moves all extremities Psychiatric Orientation: alert and oriented x 3 Testing Laboratory Results 07/06/22 19:25 07/06/22 20:39 Blood Type A Positive 07/06/22 20:06 Antibody Screen NEGATIVE 07/06/22 20:06
--- NOTE | 2022-07-07 13:17 | History & Physical Bridge Note ---
Date of Service July 07, 2022 History & Physical Bridge Note I have examined the patient, reviewed the History & Physical and in the interval since the performance of the History & Physical I have noted the following changes of clinical significance: no changes noted
[2022-07-07] MEDS ORDERED: Nursing to Pharmacy Communication SCH (13:30)
[2022-07-07] MEDS ORDERED: SUCCINYLCHOLINE CHLORIDE 20 MG/ML 10 ML VIAL IV ONE (14:07)
[2022-07-07] MEDS ORDERED: GLYCOPYRROLATE 0.2 MG/ML VIAL ONE (14:50)
--- NOTE | 2022-07-07 15:18 | Operative Report ---
Post Operative Report Pre & Post Diagnosis Operation Date: 07/07/22 08:10 Pre-Op Diagnosis: Left Knee Superficial wound Infection Status Post Left Total Knee Arthroplasty Post-Op Diagnosis: Left Knee Superficial wound Infection Status Post Left Total Knee Arthroplasty I identified the patient and participated in the time-out.: Yes Procedure Operation Date: 07/07/22 08:10 Actual Procedures p Left Knee Aspiration of left knee joint. Incision and drainage and debridement of incision(Left) - Elver Orourke MD Surgeon Elver Orourke MD Fisher [employer] Jeff fellow Ирниа Mayer physicians assistant director of security Estimated Blood Loss 5 Findings Consistent with Post-Op Diagnosis Specimens Left knee joint specimen labeled as #1. Sent for periprosthetic joint culture gram stain aerobic and anaerobic along with a cell count with differential. Intraoperative cultures x2 of the left knee incision labeled as 2 and 3 sent for the same. Drains Incisional wound VAC Anesthesia Type General Complications none Disposition Accompanied Patient To Recovery: No Disposition: Recovery Room Indications rFank is 57 years old. He is 1 month status post a left total knee replacement. 2 weeks postoperatively he developed what was thought to be a superficial soft tissue infection. Aspiration of his knee joint at that time showed no growth. He responded well to a short course of IV antibiotics and then oral antibiotics. He followed up in the office on Wednesday which was about a week after his superficial infection. Clinically he was doing fine. No knee joint issues. Erythema and tenderness resolved. Following day he was noted to have some drainage from his incision. Thought that this could be a suture abscess. He did not have any systemic signs of illness and his knee was doing fine. He was seen in the office yesterday. This did look exactly like a suture abscess but he reports having a fair amount of serous drainage which was noted at the time of the visit. We talked about options and I recommend that he be admitted to the hospital placed on IV antibiotics and that we do a incision and debridement of his surgical incision and possibly do a polyethylene exchange if the evidence suggested a deep joint infection. He agreed to proceed. Description of Procedure Informed consent obtained. Patient identified. He identified the operative site as the left knee. I marked with my initials. A preoperative surgical timeout performed. A preop dose of IV antibiotics was given. He was taken to the operating room positioned supine on the operating room table a bump was placed under the left hip and a padded post under the left calf. The leg was prepped with alcohol over the lateral knee x3. A small effusion was noted. The draining wound distally was covered and dressed with a occlusive dressing. The knee was aspirated yielding 10 cc of serosanguineous thin fluid which was sent for cell count differential and gram stain aerobic and anaerobic for periprosthetic culture. A tourniquet was applied to the left thigh. The leg was prescribed with chlorhexidine and then prepped with ChloraPrep in usual sterile fashion. It was prepped and draped as a routine total knee. DVT prophylaxis with mechanical devices intraoperatively. Postoperatively with early mobility and aspirin. There was a punctate wound about 2 -3 cm from the distal aspect of the wound is draining some serous fluid. I did not feel any fluctuance around this area nor was there any erythema. The knee joint had a small amount of fluid. Pressing on the knee joint causes no fluid to drain. There is mild edema of the knee and leg area. Welcome assisted flexion was to 90 degrees. I inserted a hemostat into the sinus and this tracked proximally by several centimeters. It did not track distally substantially. I opened the incision starting about a centimeter distal to the sinus and proceeding proximally. I then was able to insert hemostat gently further underneath the incision up into the inferior portion of the patella and the incision was then opened up that far for a distance of about 7 or 8 cm. I initially obtained a culture of the sinus area after prepping and draping and labeled at #2. I obtained another culture once the wound had been open of the deep incision area labeled #3. No purulence was noted. There was some edema fluid present. Granulation tissue was present throughout this area. I debrided all this tissue with a curette and a rongeur and sent it for specimen. It did not track anywhere from the margins of the wound except for about a centimeter underneath anteromedial skin flap. No sinus tract was noted. There was an area of granulation tissue on the patellar tendon which show when debrided revealed normal tendon underneath. The knee joint was squeezed and fluid could not be expressed. The knee joint was flexed as far as gravity allowed and no fluid was expressed. Copious irrigation was performed with sterile saline. I debrided the margins of the previous open sinus. No debris was noted however sutures were removed as encountered. The opening was carried out until there was no cavity present and normal appearing tissue at the proximal distal wound extents. Based upon the appearance of the knee joint fluid as well as the examination of the wound I found no evidence at this point that there was definitive intra-articular deep infection. Therefore after debriding and irrigating the wound was then closed with a near far far near stitches and simple stitches with 3-0 nylon. An incisional wound VAC was applied. Patient awakened from anesthesia without difficulty taken to the recovery room in stable condition. Specimens were as mentioned above. Counts were correct blood loss was 5 cc. At the conclusion of the operation spoke patient's informed of my findings postop instructions were discussed. He can do some simple gentle range of motion. Aspirin for DVT prophylaxis. He can weight-bear as tolerated. We will follow-up on cultures and will administer cefepime and vancomycin per infectious disease recommendations. No complications. I attest to the content of the Intraoperative Record and any orders documented therein. Any exceptions are noted below.
--- NOTE | 2022-07-07 15:19 | Operative Report ---
Post Operative Report Pre & Post Diagnosis Operation Date: 07/07/22 08:10 Pre-Op Diagnosis: Left Knee Infection Status Post Left Total Knee Arthroplasty Post-Op Diagnosis: Left Knee Infection Status Post Left Total Knee Arthroplasty I identified the patient and participated in the time-out.: Yes Procedure Operation Date: 07/07/22 08:10 Actual Procedures p Left Knee: Aspiration and Incision and Drainage(Left) - Elver Orourke MD Surgeon Elver Orourke MD Food Analyst K[employer] Jeff fellow Ирина Mayer physicians fish hatchery assistant Estimated Blood Loss 5 Findings Consistent with Post-Op Diagnosis Specimens None Disposition Accompanied Patient To Recovery: Yes Disposition: Recovery Room Description of Procedure Patient was taken to the operating room where anesthesia was administered. Patient was prepped and draped in the usual sterile fashion. Please see attending's operative report for specifics of the procedure. I was present for the entire case from initial patient positioning through final wound closure. Assistance was provided in tissue retraction, hemostasis, and final wound closure. Patient was taken to the recovery room in satisfactory condition. I attest to the content of the Intraoperative Record and any orders documented therein. Any exceptions are noted below.
[2022-07-07] MEDS: fentaNYL citrate 100 MCG/2 ML VIAL IV PRN ×2 (15:40→15:45)
[2022-07-07] MEDS: HYDROmorphone INJ 2 MG/ML SYR/VIAL IV PRN ×2 (15:50→15:55)
--- NOTE | 2022-07-07 16:06 | Anesthesiology Progress Note ---
Date of Service July 07, 2022 Anesthesia Post Procedure Vital Signs Vital Signs: Temp Pulse Pulse Pulse Resp BP BP 07/07/22 15:55 97 H 15 148/82 H 07/07/22 15:45 94 H 14 142/79 H 07/07/22 15:35 93 H 13 149/88 H 07/07/22 15:25 93 H 15 135/78 07/07/22 15:17 98.2 F 100 H 22 146/94 H 07/07/22 11:21 98.4 F 94 H 20 145/84 H 07/07/22 07:52 98.8 F 95 H 16 125/75 07/06/22 22:55 07/06/22 22:55 98.1 F 81 20 123/75 07/06/22 22:19 88 20 157/85 H 07/06/22 20:33 80 16 151/95 H 07/06/22 17:59 98.8 F 98 H 18 163/94 H Pulse Ox O2 Del Method O2 Flow Rate 07/07/22 15:55 99 Nasal Cannula 2 07/07/22 15:45 98 Nasal Cannula 2 07/07/22 15:35 99 Nasal Cannula 2 07/07/22 15:25 99 Nasal Cannula 2 07/07/22 15:17 97 Nasal Cannula 2 07/07/22 11:21 97 Room Air 07/07/22 07:52 98 Room Air 07/06/22 22:55 Room Air 07/06/22 22:55 94 Room Air 07/06/22 22:19 94 Room Air 07/06/22 20:33 100 Room Air 07/06/22 17:59 100 Room Air Pain Intensity Left Knee: Pain Intensity: 5 Transfer of Care Handoff Completed per policy Notes Mental Status: alert / awake / arousable and participated in evaluation Patient Amnestic to Procedure: Yes Nausea / Vomiting: adequately controlled Pain: adequately controlled Airway Patency, RR, SpO2: stable & adequate BP & HR: stable & adequate Hydration State: stable & adequate Anesthetic Complications: no major complications apparent and Pt Satisfied with anesthetic care
[2022-07-07] MEDS ORDERED: bisacodyL 10 MG SUPP PR PRN (16:34)
[2022-07-07] MEDS ORDERED: TAMSULOSIN HCL 0.4 MG CAP PO PRN (16:34)
[2022-07-07] MEDS ORDERED: MAGNESIUM HYDROXIDE SUSP 30 ML UDC PO PRN (16:34)
[2022-07-07] MEDS ORDERED: NALOXONE HCL 0.4 MG/1 ML VIAL/CARP IV PRN (16:34)
[2022-07-07] MEDS ORDERED: traMADol HCL 50 MG TABLET PO PRN (16:34)
[2022-07-07] MEDS ORDERED: VANCOMYCIN CONSULT ACTIVE PRN (16:34)
[2022-07-07] MEDS: KETOROLAC 30 MG/ML VIAL IV SCH ×2 (17:29→22:46)
[2022-07-07] MEDS: CEFEPIME 2,000 MG in SYRINGE 0 ML IV SCH (17:48)
[2022-07-07] MEDS: VANCOMYCIN HCL 1,500 MG in SODIUM CHLORIDE 0.9% 250 ML IV SCH (18:33)
[2022-07-07 19:16] LABS: Appearance Synovial Fluid Bloody; Color Synovial Fluid Amber; Mononuclear WBC Synovial 76.1 %; Polynuclear WBC Synovial 23.9 %; RBC Synovial Fluid (A) 40000 /uL; Source Synovial Fluid Knee; WBC Synovial Fluid (A) 352 /ul (0-200)
[2022-07-07] MEDS: ASPIRIN 325 MG ECTAB PO SCH (21:46)
[2022-07-07] MEDS: DOCUSATE SODIUM 100 MG CAP PO SCH (21:47)
[2022-07-08] MEDS: CEFEPIME 2,000 MG in SYRINGE 0 ML IV SCH ×3 (02:01→17:16)
[2022-07-08] MEDS: KETOROLAC 30 MG/ML VIAL IV SCH ×2 (05:51→11:21)
[2022-07-08] MEDS: VANCOMYCIN HCL 1,500 MG in SODIUM CHLORIDE 0.9% 250 ML IV SCH ×2 (05:53→17:22)
[2022-07-08 06:44] LABS: Hematocrit (blood only) 35.6 % (40.1-51.0); Hemoglobin 12.1 g/dl (14.0-18.0); Mean Corpuscular Hemoglobin 30.9 pg (25.0-34.0); Mean Corpuscular Volume 90.8 fL (80.0-100.0); Platelet Count 241 K/uL (130-400); RDW Coefficient of Variation 12.6 % (11.5-14.5); RDW Standard Deviation 41.1 fL (36.4-46.3); Red Blood Count 3.92 M/uL (4.63-6.08); White Blood Count 10.05 K/ul (4.8-10.8)
[2022-07-08 06:59] LABS: BUN Creatinine Ratio 14.4 (10-20); Calcium 8.7 mg/dl (8.5-10.1); Creatinine Clr Calc Pharmacy 109.1 ml/min; Est GFR (African American) 101.4 ml/min; Est GFR (Non-African American) 87.5 ml/min; Potassium 4.1 mmol/L (3.5-5.1)
[2022-07-08] MEDS: ASPIRIN 325 MG ECTAB PO SCH ×2 (09:00→21:33)
[2022-07-08] MEDS ORDERED: NON-FORMULARY MEDICATION (Multivitamin Tablet) PO SCH (09:00)
[2022-07-08] MEDS: DOCUSATE SODIUM 100 MG CAP PO SCH ×2 (09:00→20:53)
[2022-07-08] MEDS: MULTIVITAMIN TAB PO SCH (09:01)
[2022-07-08] MEDS: CITALOPRAM 40 MG TAB PO SCH (09:01)
[2022-07-08] MEDS: LISINOPRIL/HCTZ 20/12.5MG 1 TAB TAB PO SCH (09:01)
[2022-07-08] MEDS: buPROPion XL 150 MG TABCR PO SCH (09:02)
[2022-07-08] MEDS: amLODIPine BESYLATE 5 MG TAB PO SCH (09:02)
--- NOTE | 2022-07-08 09:29 | Pharmacy Report ---
Pharmacy Vanc AUC Short Note - Date of Service July 08, 2022 - Assessment & Plan Assessment 57 year old M receiving vancomycin/cefepime for possible postop knee infection. He has hx of total knee arthroplasty on 06/09. He had returned to ED on 06/25 with increasing candida at incision, concerns for cellulitis and placed on augmentin/doxy. Patient then developing draining from area so returned to hospital. Taken to OR yesterday and underwent I&D of area. Today is day 2 of therapy. Plan Vancomycin * AUC/MICHAEL is the preferred PK/PD target for vancomycin * AUC guided dosing is effective and associated with decreased risk of nephrotoxicity compared to traditional trough targets * Patient had received a one time dose of vancomycin in ER on 07/06 evening. Had I&D yesterday and vancomycin restarted postop. * Started on vancomycin 1500 mg iv q 12 hrs - Patient was on this dosing last admission 06/29/22 and produced stable levels * This vancomycin dosing is predicted to achieve a trough level of ~11 mcg/ml and target AUC/MICHAEL of 400-600 mg/L.hr and may be associated with a 7% risk of nephrotoxicity * Plan to check a level tomorrow AM to ensure dosing appropriate Pharmacy will continue to follow and will adjust dose/frequency as necessary. Thank you.
--- NOTE | 2022-07-08 09:54 | Progress Notes ---
DATE OF SERVICE: 07/08/2022. The patient is resting comfortably in bed. Pain is well controlled. He has been up and about on his own. He is afebrile. His vital signs are stable. Dressing clean and dry. Incisional wound VAC in place. Gross distal neurovascularly intact. White count from blood today is 10, hemoglobin 12, hematocrit 36, platelets are 241. PRP is noted. The synovial fluid from the left knee shows a 352 white cells with only 24% polys. Cultures were all preliminary. Blood cultures are no growth to date. I spoke to the lab about labeling the cultures. They were labeled, #1 knee joint and #2 and 3 from the knee wound all left side. IMPRESSION: Superficial surgical incision infection, status post total knee arthroplasty without skip dence of deep periprosthetic infection. PLAN: I discussed my findings relative to the surgery with the patient. The fluid within the knee j oint looked benign. Cultures are pending and hopefully no deep infection. There was tracking of a s uperficial soft tissue infection along the layer superficial to the knee joint capsule. This has bee n debrided, irrigated and closed. We will continue IV antibiotics until we get some definitive cultu re results. We will coordinate care with ID. He can do some simple exercises on his own and will do aspirin for DVT prophylaxis at this time. Previously, the sed rate had remained elevated. His C-reactive protein had improved. We will contin ue to monitor. Job ID: [id number]
[2022-07-08] MEDS: oxyCODONE HCL IR 5 MG TAB (IMMEDIATE RELEASE) PO PRN ×3 (12:00→21:33)
[2022-07-09] MEDS: CEFEPIME 2,000 MG in SYRINGE 0 ML IV SCH ×3 (01:11→18:22)
[2022-07-09] MEDS: oxyCODONE HCL IR 5 MG TAB (IMMEDIATE RELEASE) PO PRN ×5 (04:28→22:31)
[2022-07-09] MEDS ORDERED: VANCOMYCIN LEVEL ONE (05:30)
[2022-07-09] MEDS: VANCOMYCIN HCL 1,500 MG in SODIUM CHLORIDE 0.9% 500 ML IV SCH ×2 (06:30→18:22)
[2022-07-09 07:25] LABS: Creatinine Clr Calc Pharmacy 97.1 ml/min; Est GFR (African American) 88.1 ml/min
[2022-07-09] MEDS: amLODIPine BESYLATE 5 MG TAB PO SCH (10:05)
[2022-07-09] MEDS: MULTIVITAMIN TAB PO SCH (10:05)
[2022-07-09] MEDS: buPROPion XL 150 MG TABCR PO SCH (10:05)
[2022-07-09] MEDS: DOCUSATE SODIUM 100 MG CAP PO SCH ×2 (10:05→19:58)
[2022-07-09] MEDS: CITALOPRAM 40 MG TAB PO SCH (10:06)
[2022-07-09] MEDS: LISINOPRIL/HCTZ 20/12.5MG 1 TAB TAB PO SCH (10:06)
[2022-07-09] MEDS: ASPIRIN 325 MG ECTAB PO SCH ×2 (10:06→19:58)
--- NOTE | 2022-07-09 13:28 | Orthopedic Progress Note ---
Date of Service July 09, 2022 Assessment & Plan (1) Postoperative infection of knee: Plan: POD 2 - s/p I & D superficial postoperative wound infection, s/p left TKA May be OOB as tolerated, WBAT LLE. Will consult PT for continued rehab. Ice to left knee PRN ELevation leg for edema control. Teds on during the day, off at night. Pain medication as prescribed as needed. Continue cefipime and Vanco - will discuss further with ID regarding definitive treatment recommendations. Dr. Orourke present for today's visit. Will re-eval tomorrow. Plan for discharge to home in the next day or two possible will need IV antibiotics. Cultures pending - currently no growth to date. Case management for discharge needs. Admission and Anticipated Discharge Date Admission Date: July 06, 2022 Subjective Patient doing well, no complaints of pain in left knee. Has been out of bed, tolerating ambulation in his room and the hallway. No fevers or chills. Tolerating regular diet. No nausea, pain well controlled. Physical Exam Musculoskeletal: Incision clean, dry and intact. Sutures retained, 1 drop of serous bloody drainage from incision. Prevena lifted and reapplied today. Reinforced edges with Tegaderm. No effusion to left knee joint. TKA incision otherwise benign. Mild distal edema. No calf pain, calf supple. Distal pulses 1+; sensation normal. Able to actively SLR LLE and flex to 80-90 degrees when in bed. No discomfort with active ROM of left knee. Results & Data ([facility]) Vital Signs (Past 12 Hours) Vital Signs Temp Pulse Resp BP Pulse Ox 07/09/22 07:25 36.6 C 64 16 121/77 97 Laboratory Results 07/09/22 07/09/22 Range/Units 06:34 06:34 Creatinine 1.09 (0.6-1.4) mg/dl Est Cr Clr Drug Dosing 97.1 ml/min Est GFR ( Amer) 88.1 ml/min Est GFR (Non-Af Amer) 76.0 ml/min Vancomycin Trough 11.9 (10-20) mcg/ml Microbiology 07/06/22 19:25 Aerobic Blood Culture - Preliminary Blood No growth in Aerobic bottle after 48 hours. Anaerobic Blood Culture - Preliminary No growth in Anaerobic bottle after 48 hours. 07/06/22 19:45 Aerobic Blood Culture - Preliminary Blood No growth in Aerobic bottle after 48 hours. Anaerobic Blood Culture - Final 07/07/22 14:20 Gram Stain - Final Knee,Left Aerobic and Anaerobic Culture - Preliminary No growth to date. 07/07/22 14:20 Gram Stain - Final Knee,Left Aerobic and Anaerobic Culture - Preliminary No growth to date. 07/07/22 14:20 Gram Stain - Final Joint Fluid,Knee Aerobic and Anaerobic Culture - Preliminary No growth to date.
--- NOTE | 2022-07-09 14:55 | Pharmacy Report ---
Pharmacy Vanc AUC Short Note - Date of Service July 09, 2022 - Assessment & Plan Assessment 57 year old M receiving Vancomycin for treatment of post op knee infection. Day #4 of antimicrobial therapy. Plan Vancomycin * AUC/MICHAEL is the preferred PK/PD target for vancomycin * AUC guided dosing is effective and associated with decreased risk of nephrotoxicity compared to traditional trough targets * Trough level of 11.9 mcg/mL is predicted to achieve target AUC/MICHAEL of 580 mg/L.hr and may be associated with a 8% risk of nephrotoxicity * Continue dose of Vancomycin 1500 mg IV every 12 hours * Plan to re-check another level in around 3 days to confirm adequate dosing without drug accumulation. Pharmacy will continue to follow and will adjust dose/frequency as necessary. Thank you.
[2022-07-10] MEDS: CEFEPIME 2,000 MG in SYRINGE 0 ML IV SCH ×3 (01:07→16:37)
[2022-07-10] MEDS: oxyCODONE HCL IR 5 MG TAB (IMMEDIATE RELEASE) PO PRN ×5 (02:57→20:52)
[2022-07-10] MEDS: VANCOMYCIN HCL 1,500 MG in SODIUM CHLORIDE 0.9% 500 ML IV SCH ×2 (05:51→17:55)
[2022-07-10 07:42] LABS: C Reactive Protein < 0.50 mg/dl (0-0.5); Est GFR (African American) 89.1 ml/min; Est GFR (Non-African American) 76.9 ml/min
[2022-07-10] MEDS: DOCUSATE SODIUM 100 MG CAP PO SCH ×2 (08:29→20:52)
[2022-07-10] MEDS: buPROPion XL 150 MG TABCR PO SCH (08:29)
[2022-07-10] MEDS: MULTIVITAMIN TAB PO SCH (08:30)
[2022-07-10] MEDS: amLODIPine BESYLATE 5 MG TAB PO SCH (08:30)
[2022-07-10] MEDS: LISINOPRIL/HCTZ 20/12.5MG 1 TAB TAB PO SCH (08:30)
[2022-07-10] MEDS: CITALOPRAM 40 MG TAB PO SCH (08:31)
[2022-07-10] MEDS: ASPIRIN 325 MG ECTAB PO SCH ×2 (08:31→20:51)
[2022-07-10] MEDS: ACETAMINOPHEN 500 MG TAB PO PRN (14:01)
--- NOTE | 2022-07-10 16:16 | Progress Notes ---
DATE OF SERVICE: 07/10/2022. Resting comfortably in bed. No problems are reported. He is afebrile. His vital signs are stable. His sed rate today was 27, which is diminished. C-reactive protein within normal limits. Incisiona l Wound VAC is intact. There is less leg swelling. He has had some physical therapy. The cultures from the incision, not from the knee joint, has grown out a gram-negative bacilli. ID and sensitivit ies pending. The knee joint aspiration is no growth to date. One of the two knee incision cultures is positive. At this time, we will await Infectious Disease recommendations. We will get a PICC nato e consent. He will continue on the IV antibiotics for the time being until we get their recommendati ons. PT. Aspirin for DVT prophylaxis. Job ID: [id number]
[2022-07-11] MEDS: CEFEPIME 2,000 MG in SYRINGE 0 ML IV SCH ×3 (01:10→17:37)
[2022-07-11] MEDS: oxyCODONE HCL IR 5 MG TAB (IMMEDIATE RELEASE) PO PRN ×6 (01:10→21:49)
[2022-07-11] MEDS: VANCOMYCIN HCL 1,500 MG in SODIUM CHLORIDE 0.9% 500 ML IV SCH ×2 (05:26→17:37)
[2022-07-11 07:43] LABS: Creatinine Clr Calc Pharmacy 101.8 ml/min; Est GFR (African American) 93.2 ml/min; Est GFR (Non-African American) 80.5 ml/min
[2022-07-11] MEDS: buPROPion XL 150 MG TABCR PO SCH (08:55)
[2022-07-11] MEDS: amLODIPine BESYLATE 5 MG TAB PO SCH (08:55)
[2022-07-11] MEDS: MULTIVITAMIN TAB PO SCH (08:56)
[2022-07-11] MEDS: CITALOPRAM 40 MG TAB PO SCH (08:56)
[2022-07-11] MEDS: LISINOPRIL/HCTZ 20/12.5MG 1 TAB TAB PO SCH (08:56)
[2022-07-11] MEDS: DOCUSATE SODIUM 100 MG CAP PO SCH ×2 (08:56→21:01)
[2022-07-11] MEDS: ASPIRIN 325 MG ECTAB PO SCH ×2 (08:56→21:01)
--- NOTE | 2022-07-11 16:55 | Progress Notes ---
DATE OF SERVICE: 07/11/2022 Resting comfortably in bed. He has done some therapy on his own. No problems are reported. He is a febrile. Vital signs are stable. Dressing is changed. The wound is pristine. It is completely desiree sed. There is no drainage and there is no fluid expressed. The wound VAC is discontinued and a Nu G auze dressing is applied. Cultures are growing out pansensitive Serratia marcescens. We will contin ue the IV antibiotics. Aspirin for DVT prophylaxis. PT. Await infectious disease's recommendations . Job ID: [id number]
[2022-07-12] MEDS: CEFEPIME 2,000 MG in SYRINGE 0 ML IV SCH ×3 (01:45→17:36)
[2022-07-12] MEDS: oxyCODONE HCL IR 5 MG TAB (IMMEDIATE RELEASE) PO PRN ×6 (01:56→22:34)
[2022-07-12] MEDS ORDERED: VANCOMYCIN LEVEL ONE (05:00)
[2022-07-12] MEDS: VANCOMYCIN HCL 1,500 MG in SODIUM CHLORIDE 0.9% 500 ML IV SCH ×2 (06:31→17:36)
[2022-07-12 07:25] LABS: Est GFR (African American) 89.1 ml/min; Est GFR (Non-African American) 76.9 ml/min
[2022-07-12] MEDS: DOCUSATE SODIUM 100 MG CAP PO SCH ×2 (08:35→20:55)
[2022-07-12] MEDS: CITALOPRAM 40 MG TAB PO SCH (08:36)
[2022-07-12] MEDS: MULTIVITAMIN TAB PO SCH (08:36)
[2022-07-12] MEDS: ASPIRIN 325 MG ECTAB PO SCH ×2 (08:36→20:55)
[2022-07-12] MEDS: LISINOPRIL/HCTZ 20/12.5MG 1 TAB TAB PO SCH (08:36)
[2022-07-12] MEDS: buPROPion XL 150 MG TABCR PO SCH (08:36)
[2022-07-12] MEDS: amLODIPine BESYLATE 5 MG TAB PO SCH (08:36)
--- NOTE | 2022-07-12 09:56 | Pharmacy Report ---
Pharmacy PK ABX Note - Date of Service July 12, 2022 - Assessment and Plan Assessment 57 year old M receiving Vancomycin and Cefepime for treatment of postoperative knee infection. * Day #7 of antimicrobial therapy. * OR knee cultures grew pansensitive S. marcescens. * Will reach out to ortho today to recommend de-escalation. ID is on board. Plan Vancomycin * Current regimen: 1500 mg IV every 12 hours * Trough level obtained 07/12/22 resulted as 13.4 mcg/mL. This is predicted to achieve target AUC/MICHAEL of 400-600 mg/L.hr * Predicted AUC at steady state: 574 mg/L.hr * Continue to 1500 mg IV every 12 hours * Repeat trough level ordered for: 07/14/22 Pharmacy will continue to follow and will adjust dose/frequency as necessary. Thank you. Pharmacy has transitioned to AUC monitoring for vancomycin. AUC/MICHAEL is the preferred PK/PD target and is associated with decreased risk of nephrotoxicity compared to traditional trough targets.
--- NOTE | 2022-07-12 19:16 | Progress Notes ---
DATE OF SERVICE: 07/12/2022. The patient is stable. Awaiting ID recommendations. Job ID: [id number]
[2022-07-13] MEDS: CEFEPIME 2,000 MG in SYRINGE 0 ML IV SCH ×4 (02:28→21:23)
[2022-07-13] MEDS: oxyCODONE HCL IR 5 MG TAB (IMMEDIATE RELEASE) PO PRN ×5 (02:33→21:16)
[2022-07-13] MEDS: VANCOMYCIN HCL 1,500 MG in SODIUM CHLORIDE 0.9% 500 ML IV SCH (06:34)
[2022-07-13] MEDS: MULTIVITAMIN TAB PO SCH (08:10)
[2022-07-13] MEDS: amLODIPine BESYLATE 5 MG TAB PO SCH (08:10)
[2022-07-13] MEDS: buPROPion XL 150 MG TABCR PO SCH (08:10)
[2022-07-13] MEDS: DOCUSATE SODIUM 100 MG CAP PO SCH ×2 (08:10→21:16)
[2022-07-13] MEDS: ASPIRIN 325 MG ECTAB PO SCH ×2 (08:11→21:16)
[2022-07-13] MEDS: CITALOPRAM 40 MG TAB PO SCH (08:11)
[2022-07-13] MEDS: LISINOPRIL/HCTZ 20/12.5MG 1 TAB TAB PO SCH (08:11)
[2022-07-13] MEDS: ACETAMINOPHEN 500 MG TAB PO PRN ×2 (09:42→21:16)
--- NOTE | 2022-07-13 10:14 | Orthopedic Progress Note ---
Date of Service July 13, 2022 Assessment & Plan (1) Postoperative infection of knee: Plan: POD 6 - s/p I & D superficial postoperative wound infection, s/p left TKA May be OOB as tolerated, WBAT LLE. Continue PT/ self-directed exercises Ice to left knee PRN Elevation leg for edema control. Teds on during the day, off at night. Pain medication as prescribed as needed. Cultures grew serratial marcescens. ESR trending downt to 27 as of 07/10. CRP WNL < 0.5 Continue cefipime and Vanco Awaiting ID consult for recs Case management for discharge needs Case discussed with Dr Orourke Admission and Anticipated Discharge Date Admission Date: July 06, 2022 Subjective Pt seen and examined bedside today. He says that he is doing well and pain is well controlled. He is eager to get home. He denies any swelling in his knee or any fevers or chills. He has been doing his exercises for ROM and strength and ambulating with no difficulties. He says he does feel more stiff this morning than he has. Physical Exam Physical Exam: General: Pt laying in hospital bed AA&O, in NAD, calm and cooperative during exam Lower Extremity: Dressing in tact and not saturated. Dressing taken down to reveal incisions clean, dry and with no drainage and no surrounding erythema, warmth or purulent drainage. Pt has full ROM of ankle and all 5 digits. Pt has 5/5 strength with resisted DF/PF. SLR in tact. Calf supple and non tender. NVI with sensation to light touch distally and good distal pulses present. Lower extremity noted to have good color and temperature with no signs of vascular or lymphatic insufficiency. Patient ROM laying down was -5 to 45 degrees but sitting up he was able to get to about 95 degrees flexion. Dressing changed today with 4x4s, ABD and tegaderm Results & Data ([facility]) Vital Signs (Past 12 Hours) Vital Signs Temp Pulse Resp BP Pulse Ox O2 Del Method 07/13/22 07:22 36.6 C 75 16 115/78 97 Room Air
[2022-07-14] MEDS: ACETAMINOPHEN 500 MG TAB PO PRN (05:16)
[2022-07-14] MEDS: oxyCODONE HCL IR 5 MG TAB (IMMEDIATE RELEASE) PO PRN (05:16)
[2022-07-14] MEDS ORDERED: VANCOMYCIN LEVEL ONE (05:30)
[2022-07-14] MEDS: CEFEPIME 2,000 MG in SYRINGE 0 ML IV SCH (06:41)
[2022-07-14 07:40] VITALS: BP 115/73; PULSE 80; TEMP 97.9; O2SAT 97
[2022-07-14 08:44] LABS: Creatinine Clr Calc Pharmacy 100.8 ml/min; Est GFR (African American) 92.2 ml/min; Est GFR (Non-African American) 79.5 ml/min
--- NOTE | 2022-07-14 09:06 | Orthopedic Progress Note ---
Date of Service July 14, 2022 Assessment & Plan (1) Postoperative infection of knee: Plan: POD 7- s/p I & D superficial postoperative wound infection, s/p left TKA Patient is ready for d/c home and will be followed in our office as an outpatient. He will continue PT/ self-directed exercises Ice to left knee PRN Elevation leg for edema control. Teds on during the day, off at night. Pain medication as prescribed as needed. Cultures grew serratial marcescens. PICC is in place, Cefepime 2grams TID x5 weeks ordered via [facility]. Will have labs, CBC and CMP drawn weekly Advised to contact office if any concerns or questions. Pt verbalized understanding and is in agreement with plan. Present on Admission?: Yes Admission and Anticipated Discharge Date Admission Date: July 06, 2022 Subjective Pt was seen bedside this am approx 8:15am. He was sleeping and easily aroused. He states he is doing well. He c/o mild achiness and stiffness in the left knee, rates 2/10. He is ready to go home. He denies any fever, chills, night sweats, drainage from incision, CP, or SOB. He denies any calf pain or swelling in the left leg. He offers no concerns. Review of Systems Review of Systems: see HPI Physical Exam Physical Exam: General: Pt was easily aroused from sleeping. He is alert and oriented x3. He is in good spirits. Musculoskeletal: Left lower extremity: skin is normal in color and temperature. Neg for any drainage on dressing. Area surrounding dressing is normal in color, neg for erythema. LLE is negative for edema and knee is negative for effusion. Pt is able to tolerate -3 extension-45 degrees knee flexion. Calf is soft, nontender, neg for erythema or edema. Able to fully DF and PF ankle. DP 2+. left lower extremity is neurovascular intact. LUE: pic line is in place, resolving ecchymosis surrounding area. Neg for drainage or erythema. Able to freely flex and extend elbow, flex shoulder w/o signs of restrictions/pain. LUE is NVI. Results & Data ([facility]) Vital Signs (Past 12 Hours) Vital Signs Temp Pulse Resp BP Pulse Ox O2 Del Method 07/14/22 07:37 36.6 C 80 16 115/73 97 Room Air 07/13/22 22:26 36.8 C 82 20 114/68 96 Room Air Laboratory Results 07/14/22 Range/Units 06:52 Creatinine 1.05 (0.6-1.4) mg/dl Est Cr Clr Drug Dosing 100.8 ml/min Est GFR ( Amer) 92.2 ml/min Est GFR (Non-Af Amer) 79.5 ml/min
[2022-07-14] MEDS: DOCUSATE SODIUM 100 MG CAP PO SCH (09:25)
[2022-07-14] MEDS: LISINOPRIL/HCTZ 20/12.5MG 1 TAB TAB PO SCH (09:25)
[2022-07-14] MEDS: MULTIVITAMIN TAB PO SCH (09:25)
[2022-07-14] MEDS: CITALOPRAM 40 MG TAB PO SCH (09:25)
[2022-07-14] MEDS: amLODIPine BESYLATE 5 MG TAB PO SCH (09:25)
[2022-07-14] MEDS: ASPIRIN 325 MG ECTAB PO SCH (09:25)
[2022-07-14] MEDS: buPROPion XL 150 MG TABCR PO SCH (09:25)
--- NOTE | 2022-07-15 10:43 | Discharge Summary ---
Date of Service July 15, 2022 Admission HPI Per Admitting Provider This 57-year-old male is seen today in the ED. He previously underwent left total knee arthroplasty by Dr. Orourke on 06/09/2022. He was discharged to home on 06/11/2022 after an uneventful surgical admission. Patient returned to the ED on 06/25/2022 for increasing pain at the bottom of his incision, fever, chills, sweats, and redness. He was thought to have cellulitis and IV antibiotics were started. Knee aspiration at that time did not grow any bacteria. Infectious disease was consulted and he was placed on doxycycline twice daily and Augmentin twice daily. Patient was discharged to home on 06/30/2022. On 07/04 patient noticed a small pinhole at the distal portion of his knee scar that began draining. He states it has continued to drain a small amount of serous fluid since then. Patient was seen in the office today and there was concern for possible communication with the joint. Because of this, he was sent to the ED for admission. Patient denies any fevers, sweats, or chills. He denies any increase in knee pain. He has been ambulatory using his cane. No nausea or vomiting. Due to current hospital restrictions and bed availability, direct admission was not available. Discharge Data Consultations 07/06/22 19:35 Consult Orthopedic Surgery Stat 07/07/22 09:29 Consult Infectious Diseases Routine Procedures Performed Operation Date: 07/07/22 08:10 Actual Procedures p Left Knee: Aspiration and Incision and Drainage(Left) - Elver Orourke MD Hospital Course (1) Postoperative infection of knee: Patient underwent a irrigation and debridement of her superficial postoperative wound infection with Dr. Orourke on July 07, 2022. He is status post left total knee arthroplasty and developed some drainage, erythema and swelling of his lower aspect of the incision. He was taken to the operating room and a superficial irrigation debridement was performed. His surgery was performed with general anesthesia. Postoperatively he was continued on IV cefepime 2000 mg every 8 hours and vancomycin every 12 hours. He was allowed out of bed, weight-bear as tolerated on his left lower extremity. A Prevena dressing was placed intraoperatively and was left on for about 5 days after surgery. He remained pain-free in his left knee and without fevers or chills during his inpatient stay. Blood cultures were also obtained and were negative. Intraoperative cultures were obtained and he was found to have Serratia marcescens in his wound. An infectious disease consult was placed and on the sixth day of his inpatient stay they recommended IV cefepime 2000 mg every 8 hours for 6 weeks through an IV PICC line. His PICC line was placed on postoperative day 6. Case management was involved for disposition needs. They arranged for [facility] home health but he did need to stay an extra day until they could get the medicine delivered to his house. He tolerated regular diet while he was in house. His vital signs remained stable. His incision was checked every few days and did not show any evidence of persistent drainage, swelling or erythema. No repeat I&D was necessary. He did perform his postoperative total knee rehab while in the hospital. Physical therapy was also consulted. He was on aspirin for DVT prophylaxis. He had tramadol and oxycodone as needed for pain management. He was discharged to his home in stable condition on July 14, 2022 with an IV PICC line and home health arrangements. He understands and agrees with the plan. Discharge instructions were reviewed prior to discharge. We will follow closely as an outpatient.
== END 2022-07-14 11:26 | disposition home health service (06) | DRG 858 ==
LOC: ED 17:31 → 3W 19:42
DX: T81.41XA Infection following a procedure, superficial incisional surgical site, initial encounter; Z91.013 Allergy to seafood; Z79.82 Long term (current) use of aspirin; Z79.899 Other long term (current) drug therapy; Z87.891 Personal history of nicotine dependence; Z91.041 Radiographic dye allergy status; F32.A Depression, unspecified; F41.9 Anxiety disorder, unspecified; Y79.2 Prosthetic and other implants, materials and accessory orthopedic devices associated with adverse incidents; I10 Essential (primary) hypertension; Z20.822 Contact with and (suspected) exposure to COVID-19; B96.89 Other specified bacterial agents as the cause of diseases classified elsewhere; Y83.1 Surgical operation with implant of artificial internal device as the cause of abnormal reaction of the patient, or of later complication, without mention of misadventure at the time of the procedure